=== PATIENT | female | born 1945 | race Two or more races ===

== ENCOUNTER 2025-03-11 11:52 | Outpatient (OUT) | payer MEDICARE, SELFPAY ==
--- OUTSIDE RECORDS SUMMARY | 2025-02-27 08:45 | XMS_ITS | Encounter Summary ---
Author Organization [employer] tem Address [id number] [address] [place] [address] Care Team Providers Care School Psychology Specialist Name Role Phone Tish Pearson APRN-GRADUATE INTERN Primary Care Pro vider Reason for Referral * Misc (Routine) - Authorized Specialty Diagnoses / Procedures Referred By Contac t Referred To Contact Procedures Discharge Follow-Up Amari Lozoya MD [address] [facility] [address] [place] [address] Phone: tel: fax: Referral ID Status Reason Start Date Expiration Date V isits Requested Visits Authorized [id number] Authorized 02/27/2025 02/27/2026 1 1 * Misc (Routine) - Authorized Specialty Diagnoses / Procedures Referred By Contac t Referred To Contact Procedures Leave dressing on - Keep it clean, dry, and intact until clinic visit Amari Lozoya MD [address] [facility] [address] [place] [address] Phone: tel: fax: Referral ID Status Reason Start Date Expiration Date V isits Requested Visits Authorized [id number] Authorized 02/27/2025 02/27/2026 1 1 Reason for Visit * Auth/Cert Specialty Diagnoses / Procedures Referred By Contac t Referred To Contact Diagnoses Displaced fracture of glenoid cavity of scapula right shoulder initial encounter for closed fracture, Displaced fracture of greater tuberosity of right humerus initial encounter for closed fracture Procedures [place] OPEN RX GR TUBEROSITY FX OPEN REDUCTION INTERNAL FIXATION SHOULDER Amari Lozoya MD [address] [place] [address] Phone: tel: fax: Referral ID Status Reason Start Date Expiration Date Visits Re quested Visits Authorized [id number] Encounter Details Date Type Department Care Team (Latest Contact Info) Description 02/27/2025 8:45 AM EDT - 02/27/2025 3:19 PM EDT Hospital Encounter [facility] - Surgery [address] [place] [phone] Amari Lozoya MD [address] [place] [address] Closed displaced fracture of glenoid cavity of right scapula, initial encounter (Primary Dx); Closed displaced fracture of greater tuberosity of right humerus, initial encounter Discharge Disposition: Home Social History Tobacco Use Types Packs/Day Years Used Date Smoking Tobacco: Never Smokeless Tobacco: Never Alcohol Use Standard Drinks/Week Comments No 0 (1 standard drink = 0.6 oz pur e alcohol) Childcare Answer Date Recorded Childcare Unknown 03/23/2019 Employment Answer Date Recorded Employment Unknown 03/23/2019 Hunger Screening Answer Date Recorded Within the past 12 months we worried whether our food would run out before we got money to buy more. Never True 02/10/2025 Within the past 12 months th e food we bought just didn't last and we didn't have money to get more. Never True 02/10/2025 Purpose - Life Answer Date Recorded Purpose and direction in life Unknown Comments No Sex and Gender Information Value Date Recorded Sex Assigned at Not on file Legal Sex Female 11:27 AM EDT Gender Identity Not on file Sexual Orientation Not on file documented as of this encounter Last Filed Vital Signs Vital Sign Reading Time Taken Comments Blood Pressure 136/64 02/27/2025 3:00 PM EDT Pulse 68 02/27/2025 1:52 PM EDT Temperature 36 C (96.8 F) 02/27/2025 3:00 PM EDT Respiratory Rate 16 02/27/2025 3:00 PM EDT Oxygen Saturation 94% 02/27/2025 3:00 PM EDT Inhaled Oxygen Concentration - - Weight 56.7 kg (125 lb) 02/20/2025 1:00 PM EDT Height 160 cm (5' 3 ) 02/20/2025 1:00 PM EDT Body Mass Index 22.14 02/20/2025 1:00 PM EDT documented in this encounter Discharge Instructions * Discharge Instructions* Kerry Colby RN - 02/27/2025 1:35 PM EDT Ortho Discharge Instructions 1. Because you have had anesthesia, do not drive or operate any hazardous machinery for 24 hours 2. Because you have had anesthesia, do not make important personal or business decisions for 24 hours. 3. Because you have had anesthesia, do not drink alcoholic beverages for 24 hours. 4. Because you have had anesthesia, do not smoke or use tobacco products for 24 hours. 5. Eat light foods and drink plenty of fluids, up to 8 glasses per day. 6. If your bandage becomes soaked with bright red blood, place another dressing over it. Do not remove the original bandage. Call your surgeon for further instructions. A small amount of bright red blood is to be expected. 7. Limit your activities for 24 hours. Do not engage in heavy work until your surgeon give you permission. 8. Report any excessive swelling of or around the wound, redness, fever (temp of 100 degrees or more), any excessive pain, or any questions to your surgeon. 9. Elevate the affected extremity on a pillow for comfort 10. Move fingers/toes to improve circulation. 11. Use prescribed pain pill as directed. You may use Tylenol or Motrin if you prefer. 12. Keep your dressing on and dry (unless instructed differently by your doctor) until your PT visit 13. You may use ice to the operative site with the exception of fingers. 14. Call 911 and/or go to the nearest emergency room for any chest pain or shortness of breath. documented in this encounter Medications at Time of Discharge atorvastatin (LIPITOR) 20 mg tablet Take 1 tablet (20 mg total) by mouth in the morning. b complex vitamins capsule Take 1 capsule by mouth in the morning. calcium carbonate-vitamin D3 500 mg-10 mcg (400 unit) tablet Take 1,200 mg by mouth daily. ibandronate (BONIVA) 3 mg/3 mL injectionIndicatio ns:postmenopausal osteoporosis Infuse 3 mL (3 mg total) into a venous catheter every 3 (three) months Indications: decreased bone mass following menopause. losartan (COZAAR) 25 mg tablet Take 1 tablet (25 mg total) by mouth in the morning. TURMERIC ROOT EXTRACT ORAL Take 1 capsule by mouth daily. ZINC ORAL Take by mouth. documented as of this encounter H&P Notes * Amari Lozoya MD - 02/27/2025 10:24 AM EDT HISTORY AND PHYSICAL INTERVAL NOTE: Tanya Lima 1945 [id number] H&P reviewed. The patient was examined and there are no changes to the H&P. Amari Lozoya MD Source Note - Frank Richard PA-C - 02/23/2025 1:31 PM EDT documented in this encounter Miscellaneous Notes * Perioperative Nursing Note - Kerry Colby RN - 02/27/2025 3:09 PM EDT Pt wheeled to bathroom to void. Pt able to transfer from wheelchair to commode with use of cane. RNwith patient to assist as needed. * Op Note - Amari Lozoya MD - 02/27/2025 10:33 AM EDT DATE OF VISIT: 02/27/2025 PREOPERATIVE DIAGNOSIS: 1. * No Diagnosis Codes entered * 2. Right severely comminuted proximal humerus fracture with loose fragments greater tuberosity fracture and rotator cuff tear Body mass index is 22.14 kg/m??. POSTOPERATIVE DIAGNOSIS: 1. * No Diagnosis Codes entered * 2. Right severely comminuted proximal humerus fracture with loose fragments greater tuberosity fracture and rotator cuff tear Body mass index is 22.14 kg/m??. SURGEON: Amari Lozoya MD OPERATION PERFORMED: Procedure(s): Right shoulder arthrotomy with removal loose fragments Open reduction internal fixation right proximal humerus and greater tuberosity with rotator cuff repair bursectomy subacromial decompression ANESTHESIOLOGIST: Anesthesiologist: Perez Phipps MD ASSISTANT COMMUNITY DIRECTOR: Kristine Hook APRN-ASSISTANT COMMUNITY DIRECTOR ANESTHESIA: General COMPONENTS: Implant Name Type Inv. Item Serial No. Shuttle Route Vehicle Operator Lot No. LRB No. Used Action ashley pin, 0.062 Pin Shy [employer] Right 5 Implanted ANCHOR SUT 5.5MM SWIVELOCK C CLS EYLT VNT BCMPS PK 19.1MM EA=BILL-ONLY - [id number] [employer] ANCHOR SUT 5.5MM SWIVELOCK C CLS EYLT VNT BCMPS PK 19.1MM EA=BILL-ONLY [employer] [id number] Right 1 Implanted ashley pin, 5/64 Pin Shy [employer] Right 1 Implanted ESTIMATED BLOOD LOSS: less than 50 cc SPECIMEN: cultures right shoulder VIBRATOR OPERATOR: Torito INDICATIONS: Patient is a pleasant 79 y.o. year-old female with comminuted right proximal humerus fracture with displaced tuberosity fracture rotator cuff tear. Given patient's persistent pain and disability, and difficulties with activities of daily living, wished to proceed with Procedure(s): surgical treatment right shoulder. Reviewed risk complications alternative benefits patient's family's questions answered also for said procedure procedure DESCRIPTION OF PROCEDURE: At [facility] in the operative suite. Patient's carefully padded position of her table she was administered Anesthetic preop antibiotic she was then carefully padded position beach chair position. Fluoroscopic image was brought over the right proximal humerus which images were obtained revealing the displaced fractures. The right upper extremity was then prepped draped routine sterile fashion. A time-out was performed the patient operative site and procedure were verified. Image was brought over the right shoulder. The overlying skin was anesthetizedusing local with epinephrine. A lateral incision was made the lateral aspect the acromion and distal to the 5 cm for protection of the axillary nerve. Skin subcu tissue retractors position was performed with the release of the deltoid 0 fascia from the acromion. A Jase retractor was placed. Serous dark fluid was noted from the bursa. This was swabbed. With a Jase in position a subacromialdecompression was performed with the bursectomy. The large displaced tuberosity fracture was noted with exposure of the glenohumeral joint. Loose fragments were removed from the glenohumeral joint this was irrigated noted free of loose bodies or debris. This was followed by mobilization and reduction of the proximal humerus and greater tuberosity fracture. Extensive comminution of the tuberosity fragment as well as the proximal humerus was noted. Using number 2. FiberWire in a Jagjit-Karlos stitch 6 sutures were placed within the cuff for mobilization and distraction back to its insertion. Thiswas followed by surgical stabilization of proximal use tuberosity fracture using K-wires. This was imaged on multiple views hardware is noted well position. The K-wires were then Cut.This was followed by suture repair of the rotator cuff down to bone using the [employer] SwiveLock anchor the additional sutures were tied around the pin and back to the anchor providing excellent coverage of the humeral head with the tuberosity and torn rotator cuff. The wound was irrigated using irrigation solution.This was followed by repair of the deltotrapezial fascia using 2. Vicryl and Ethibond through bone tunnels within the acromion. Subcutaneous tissue closed using 3-0 skin reapproximated using Quill and arsalan. Final images were obtained AP lateral revealing anatomic shinto fracture with the hardware well positioned. A sterile dressing consisting of bacitracin 4 x 4 Webril foam tape and well-padded molded abduction pillow placed. Patient was carefully transferred from the operative table togurney taken to room stable condition. There no complications with the procedures. This note was made through a speech recognition program and may contain errors due to phonetic interpretation. Signed not reviewed detail * Perioperative Nursing Note - Angelique Lindo RN - 02/27/2025 10:12 AM EDT Patient is concerned about her right groin hurting her. States she is unable to walk at this time. States it is from when she fell 2 weeks ago. She will address issue with Dr. Lozoay this am. * Pre-Procedure Instructions - Kerry Colby RN - 02/20/2025 1:01 PM EDT Pre-Surgery Instructions: Medication Instructions atorvastatin (LIPITOR) 20 mg tablet Continue as prescribed, DO NOT take morning of procedure b complex vitamins capsule Stop taking 1 week prior to procedure calcium carbonate-vitamin D3 500 mg-10 mcg (400 unit) tablet Stop taking 1 week prior to procedure ibandronate (BONIVA) 3 mg/3 mL injection Continue as prescribed, DO NOT take morning of procedure losartan (COZAAR) 25 mg tablet Continue as prescribed, take morning of procedure TURMERIC ROOT EXTRACT ORAL Stop taking 1 week prior to procedure ZINC ORAL Stop taking 1 week prior to procedure PRE-OP INSTRUCTIONS Your surgery is scheduled for: 02/27/2025 You will need to arrive at: 9:00am Come in the main entrance (#1), stop at the main registration desk and tell them you are here for surgery. You will need to sign a consent prior to going to outpatient surgery. If no one is at the receptionist/telephone operator desk in outpatient surgery, please use the red phone that sits on thedesk to notify the pre-op staff that you are here. The number to dial is on the plaque next to the phone. Do not eat or drink anything after midnight the night before surgery - this includes hard candy andchewing gum. EXCEPTION: If your surgery is scheduled for after 12:00 (noon), you may have clear liquids from midnight until 4 a.m. No tobacco products after midnight and no alcohol for 48 hours before surgery. DO NOT SHAVE the area of the operation for 48 hours before surgery. STOP BLOOD THINNERS 5-7 days before surgery unless otherwise instructed by your doctor. These include Aspirin, Motrin (Ibuprofen), and Aleve (Naproxen). If you are on Ticlid, Xarelto, Pradaxa, Plavix, or Coumadin, please check with your prescribing doctor for instructions for when to stop them. Stop all vitamins and herbal products 7 days before surgery. If you use an inhaler, continue to use it routinely Please bring the following with you the day of your surgery: Sling/Swath Please shower the evening before and the morning of surgery. If you have been given Hibiclens, please use during your shower. Do not use any lotion, perfume, cologne, or powder once you shower. You may use deodorant unless you are having a shoulder surgery. Remove nail latvian from at least one finger. If you are having a hand, wrist, or foot surgery - nail latvian and artifical nails must be removed from that extremity. Wear loose fitting, comfortable clothing that will fit over the dressing. Leave valuables (money, jewelry) at home and remove all piercings. Notify your surgeon if you develop any illness before your surgery. If you are staying overnight, please DO NOT BRING your home medications with you You will need a responsible adult to drive you home. For your safety, please arrange to have someone with you for the first 24 hours. If you have any questions before surgery, please call the Pre-admission Testing Department at [phone]. documented in this encounter Plan of Treatment Not on file documented as of this encounter Procedures Procedure Name Priority Date/Time Associated Diagnosis Comments XR SHOULDER RT MIN 2 VWS Routine 02/27/2025 1:12 PM EDT REPAIR ROTATOR CUFF SHOULDER 02/27/2025 10:33 AM EDT Displaced fracture of glenoid cavity of scapula right shoulder initial encounter for closed fracture, Displaced fracture of greater tuberosity of right humerus initial encounter for closed fracture Case Notes 9:00 Special Needs [id number], beach chair and have available 4.0 screws and sutures [place] OPEN RX GR TUBEROSITY FX 02/27/2025 10:33 AM EDT Displaced fracture of glenoid cavity of scapula right shoulder initial encounter for closed fracture, Displaced fracture of greater tuberosity of right humerus initial encounter for closed fracture Case Notes 9:00 Special Needs [id number], beach chair and have available 4.0 screws and sutures documented in this encounter Results * X-ray shoulder right minimum 2 views (02/27/2025 1:12 PM EDT) Anatomical Region Laterality Modality MSK, Upper Extremities, Shoulder Right Radio Fluoroscopy 02/27/2025 2:22 PM EDT Narrative 02/27/2025 2:22 PM EDT XR SHOULDER RT MIN 2 VWS Clinical history:ORIF right shoulder pain, fracture Comparison: 02/28/2025 Impression: ORIF of the proximal humeral fracture with fluoroscopic guidance. Reference air kerma was 5.90 mGy. Finalized by Massimo Nava MD on 02/27/2025 2:22 PM Procedure Note Massimo Nava MD - 02/27/2025 XR SHOULDER RT MIN 2 VWS Clinical history:ORIF right shoulder pain, fracture Comparison: 02/28/2025 Impression: ORIF of the proximal humeral fracture with fluoroscopic guidance.Reference air kerma was 5.90 mGy. Finalized by Massimo Nava MD on 02/27/2025 2:22 PM Amari Lozoya MD IMG DIAGNOSTIC IMAGING ORDERABL ES Final Result documented in this encounter Visit Diagnoses Diagnosis Closed displaced fracture of glenoid cavity of right scapula, initial encounter- Primary Closed displaced fracture of greater tuberosity of right humerus, initial encounter documented in this encounter Administered Medications Inactive Administered Medications - up to 3 most recent administrations Medication Order MAR Action Action Date Dose Rate Site fentaNYL (SUBLIMAZE) injection 25 mcg 25 mcg, intravenous, Every 5 min PRN, Pain Scale 1-5, Starting on Thu02/27/25 at 1253, PACU (only), Up to a maximum dose of 150 mcg. Look-alike/sound-alike medication - verify indication for use. fentaNYL (SUBLIMAZE) injection 50 mcg 50 mcg, intravenous, Every 5 min PRN, Pain Scale 6-10, Starting on Thu02/27/25 at 1253, PACU (only), Up to a maximum dose of 150 mcg. Look-alike/sound-alike medication - verify indication for use. HYDROmorphone (PF) (DILAUDID) injection 0.2 mg 0.2 mg, intravenous, Every 5 min PRN, Pain Scale 1-5 if pain not controlled by fentanyl, Starting on 02/27/25 at 1253, PACU (only), Up to a maximum of 1.2 mg Look-alike/sound-alike medication - verify indication for use. HYDROmorphone (PF) (DILAUDID) injection 0.5 mg 0.5 mg, intravenous, Every 5 min PRN, moderate pain - pain scale 4-6, severe pain - pain scale 7-10, for Pain Scale 6-10 if pain not controlled by fentanyl, Starting on Thu02/27/25 at 1253, For 4 doses, PACU (only), Up to a maximum of 2.0 mg Look-alike/sound-alike medication - verify indication for use. ipratropium-albuteroL (DUONEB) 0.5 mg-3 mg(2.5 mg base)/3 mL nebulizer solution 3 mL 3 mL, nebulization, Once as needed, wheezing, Starting on Thu02/27/25 at 1253, For 1 dose, PACU (only), Implement INPATIENT/ED Bronchodilator Clinical Practice Guidelines? Yes labetaloL (NORMODYNE,TRANDATE) injection 5 mg 5 mg, intravenous, Every 5 min PRN, high blood pressure, systolic blood pressure greater than 160 mmHg and heart rate greater than 60 beats per minute, Starting on Thu02/27/25 at 1253, PACU (only), Maximum dose of labetalol (TRANDATE) is 20 mg while in PACU Look-alike/sound-alike medication - verify indication for use. lactated ringers infusion 100 mL/hr, intravenous, Continuous, Starting on Thu02/27/25 at 0915, Pre-op, If fluid restriction is not indicated, infuse at a rate up to 5 mL/kg/hr not to exceed the total replacement volume (2 ml/kg/hr) from the time NPO status was initiated. Restarted 02/27/2025 12:51 PM EDT Continued by Anesthesia 02/27/2025 10:34 AM EDT 100 mL/hr New Bag 02/27/2025 9:44 AM EDT 100 mL/hr 100 mL/hr lactated ringers infusion 100 mL/hr, intravenous, Continuous, Starting on Thu02/27/25 at 1300, PACU (only) meperidine (DEMEROL) injection 25 mg 25 mg, intravenous, Every 15 min PRN, shivering, Starting on Thu02/27/25 at 1253, For 2 doses, PACU (only), May repeat initial dose in 15 minutes, once, if initial meperidine (DEMEROL) dose ineffective for shivering. midazolam (VERSED) injection 2 mg 2 mg, intravenous, As needed, anxiety, Starting on Thu02/27/25 at 0911, For 1 dose, Pre-op, Indication: Sedation Given 02/27/2025 9:44 AM EDT 2 mg naloxone (NARCAN) injection 0.1 mg 0.1 mg, intravenous, As needed, respiratory depression, Starting on Thu02/27/25 at 1253, For 4 doses, PACU (only), Maximum dose: 0.4 mg Look-alike/sound-alike medication - verify indication for use. ondansetron (PF) (ZOFRAN) injection 4 mg 4 mg, intravenous, Once as needed, nausea, Starting on Thu02/27/25 at 1253, For 1 dose, PACU (only), Intravenous administration preferred to be given over 2-5 minutes. oxyCODONE (ROXICODONE) immediate release tablet 10 mg 10 mg, oral, Every 4 hours PRN, severe pain - pain scale 7-10, Starting on Thu02/27/25 at 1253, PACU (only), Look-alike/sound-alike medication - verify indication for use. Immediate release. oxyCODONE (ROXICODONE) immediate release tablet 5 mg 5 mg, oral, Every 4 hours PRN, pain scale 1-6, Starting on Thu02/27/25 at 1253, PACU (only), Look-alike/sound-alike medication - verify indication for use. Immediate release. documented in this encounter Active and Recently Administered Medications Times are shown in EDT. Scheduled Medication Order 02/25/2025 02/26/2025 02/27/2025 ceFAZolin (ANCEF) IVPB 2000 mg/50 mL in iso-osmotic dextrose (40 mg/mL premix) (COMPLETED) 2,000 mg, intravenous, at 100 mL/hr, Administer over 30 Minutes, Once, On Thu02/27/25 at 0915, For 1 dose, Pre-op, Look-alike/sound-alike medication - verify indication for use., Indication: Surgical prophylaxis 1034 (Given - Provid er: Kristine Hook, MANAGER BIOSTATISTICS-ASSISTANT COMMUNITY DIRECTOR) Continuous Medication Order 02/25/2025 02/26/2025 02/27/2025 lactated ringers infusion (CANCELED) 100 mL/hr, intravenous, Continuous, Starting on Thu02/27/25 at 0915, Pre-op, If fluid restriction is not indicated, infuse at a rate up to 5 mL/kg/hr not to exceed the total replacement volume (2 ml/kg/hr) from the time NPO status was initiated. 0944 (New Bag - Prov ider: Angelique Lindo RN)1034 (Continued by Anesthesia - Provider: RUBY Torres)1250 (Paused - Provider: RUBY Torres - Comment: Switch to gravity)1251 (Restarted - Provider: RUBY Torres)1406 (Due: Order Ending - Provider: Automatic Transfer Provider - Comment: [Order ends at this time. Document the following action when infusion is complete: Stop Bag]) lactated ringers infusion 100 mL/hr, intravenous, Continuous, Starting on Thu02/27/25 at 1300, PACU (only) 1300 (Due) PRN Medication Order 02/25/2025 02/26/2025 02/27/2025 bacitracin ointment (CANCELED) As needed, Starting on Thu02/27/25 at 1246, Intra-op 1246 (Given - Provid er: Amari Lozoya MD) bupivacaine-EPINEPHrine (MARCAINE w/EPI) 0.25 %-1:[id number] injection (CANCELED) As needed, Starting on Thu02/27/25 at 1109, Intra-op 1109 (Given - Provid er: Amari Lozoya MD) fentaNYL (SUBLIMAZE) injection 25 mcg 25 mcg, intravenous, Every 5 min PRN, Pain Scale 1-5, Starting on Thu02/27/25 at 1253, PACU (only), Up to a maximum dose of 150 mcg. Look-alike/sound-alike medication - verify indication for use. fentaNYL (SUBLIMAZE) injection 50 mcg 50 mcg, intravenous, Every 5 min PRN, Pain Scale 6-10, Starting on Thu02/27/25 at 1253, PACU (only), Up to a maximum dose of 150 mcg. Look-alike/sound-alike medication - verify indication for use. HYDROmorphone (PF) (DILAUDID) injection 0.2 mg 0.2 mg, intravenous, Every 5 min PRN, Pain Scale 1-5 if pain not controlled by fentanyl, Starting on Thu02/27/25 at 1253, PACU (only), Up to a maximum of 1.2 mg Look-alike/sound-alike medication - verify indication for use. HYDROmorphone (PF) (DILAUDID) injection 0.5 mg 0.5 mg, intravenous, Every 5 min PRN, moderate pain - pain scale 4-6, severe pain - pain scale 7-10, for Pain Scale 6-10 if pain not controlled by fentanyl, Starting on Thu02/27/25 at 1253, For 4 doses, PACU (only), Up to a maximum of 2.0 mg Look-alike/sound-alike medication - verify indication for use. ipratropium-albuteroL (DUONEB) 0.5 mg-3 mg(2.5 mg base)/3 mL nebulizer solution 3 mL 3 mL, nebulization, Once as needed, wheezing, Starting on Thu02/27/25 at 1253, For 1 dose, PACU (only), Implement INPATIENT/ED Bronchodilator Clinical Practice Guidelines? Yes labetaloL (NORMODYNE,TRANDATE) injection 5 mg 5 mg, intravenous, Every 5 min PRN, high blood pressure, systolic blood pressure greater than 160 mmHg and heart rate greater than 60 beats per minute, Starting on Thu02/27/25 at 1253, PACU (only), Maximum dose of labetalol (TRANDATE) is 20 mg while in PACU Look-alike/sound-alike medication - verify indication for use. meperidine (DEMEROL) injection 25 mg 25 mg, intravenous, Every 15 min PRN, shivering, Starting on Thu02/27/25 at 1253, For 2 doses, PACU (only), May repeat initial dose in 15 minutes, once, if initial meperidine (DEMEROL) dose ineffective for shivering. midazolam (VERSED) injection 2 mg (COMPLETED) 2 mg, intravenous, As needed, anxiety, Starting on Thu02/27/25 at 0911, For 1 dose, Pre-op, Indication: Sedation 0944 (Given - Provid er: Angelique Lindo RN) naloxone (NARCAN) injection 0.1 mg 0.1 mg, intravenous, As needed, respiratory depression, Starting on Thu02/27/25 at 1253, For 4 doses, PACU (only), Maximum dose: 0.4 mg Look-alike/sound-alike medication - verify indication for use. ondansetron (PF) (ZOFRAN) injection 4 mg 4 mg, intravenous, Once as needed, nausea, Starting on Thu02/27/25 at 1253, For 1 dose, PACU (only), Intravenous administration preferred to be given over 2-5 minutes. oxyCODONE (ROXICODONE) immediate release tablet 10 mg(Linked Group 1) 10 mg, oral, Every 4 hours PRN, severe pain - pain scale 7-10, Starting on Thu02/27/25 at 1253, PACU (only), Look-alike/sound-alike medication - verify indication for use. Immediate release. oxyCODONE (ROXICODONE) immediate release tablet 5 mg(Linked Group 1) 5 mg, oral, Every 4 hours PRN, pain scale 1-6, Starting on Thu02/27/25 at 1253, PACU (only), Look-alike/sound-alike medication - verify indication for use. Immediate release. sodium chloride 0.9% (NS) irrigation bottle (CANCELED) As needed, Starting on Thu02/27/25 at 1109, Intra-op 1109 (Given - Provid er: Amari Lozoya MD - Comment: to back table) Linked Groups Order Group 1: oxyCODONE (ROXICODONE) immediate release tablet 5 mgJump to med 5 mg, oral, Every 4 hours PRN, pain scale 1-6, Starting on Thu02/27/25 at 1253, PACU (only), Look-alike/sound-alike medication - verify indication for use. Immediate release. Or oxyCODONE (ROXICODONE) immediate release tablet 10 mgJump to med 10 mg, oral, Every 4 hours PRN, severe pain - pain scale 7-10, Starting on Thu02/27/25 at 1253, PACU (only), Look-alike/sound-alike medication - verify indication for use. Immediate release. documented in this encounter Care Teams School Psychology Specialist Relationship Specialty Start Date End Date Tish Pearson, MANAGER BIOSTATISTICS-GRADUATE INTERN [address] [place] [address] PCP - General Internal Medicine 08/31/24 documented as of this encounter
--- OUTSIDE RECORDS SUMMARY | 2025-02-27 10:30 | XMS_ITS | Encounter Summary ---
Author Organization [facility] tem Address [id number] [address] [place] [address] Care Team Providers Care Plate Developer Name Role Phone PearsonTish beltran APRN-BENEFITS SPECIALIST RECRUITER Primary Care Pro vider Reason for Visit * Auth/Cert Specialty Diagnoses / Procedures Referred By Contac t Referred To Contact Diagnoses Displaced fracture of glenoid cavity of scapula right shoulder initial encounter for closed fracture, Displaced fracture of greater tuberosity of right humerus initial encounter for closed fracture Procedures WY OPEN RX GR TUBEROSITY FX OPEN REDUCTION INTERNAL FIXATION SHOULDER Amari Lozoya MD [address] [place] [address] Phone: tel: fax: Referral ID Status Reason Start Date Expiration Date Visits Re quested Visits Authorized [id number] Encounter Details Date Type Department Care Team (Late st Contact Info) Description 02/27/2025 10:30 AM EDT - 02/27/2025 12:00 PM EDT Surgery [facility] - Surgery [address] [place] [id number] Amari Lozoya MD [address] [place] [address] OPEN REDUCTION INTERNAL FIXATION SHOULDER [97507 (CPT )] Surgery Details Date/Time Status Location OR Service Patient Class Case Cl ass Case Type Trauma Case? 02/27/2025 10:30 AM Posted [facility] Elective Panel 1 Procedure LRB Anes Op Region Wound Class Comments OPEN REDUCTION INTERNAL FIXA TION SHOULDER Right General Shoulder Clean REPAIR ROTATOR CUFF SHOULDER Right General Shoulder C lean Surgeon Surgeon Role Service Panel Amari Lozoya MD [facility] 1 Case Notes 9:00 Special Needs [id number], beach chair and have available 4.0 screws and sutures documented in this encounter Social History Tobacco Use Types Packs/Day Years [...] Sign Reading Time Taken Comments Blood Pressure 135/63 02/27/2025 9:22 AM EDT Pulse 79 02/27/2025 9:22 AM EDT Temperature 36.6 C (97.8 F) 02/27/2025 9:22 AM EDT Respiratory Rate 20 02/27/2025 9:22 AM EDT Oxygen Saturation 98% 02/27/2025 9:22 AM EDT Inhaled Oxygen Concentration - - Weight [...] AND PHYSICAL INTERVAL NOTE: Tanya Lima 1945 [id number] H&P reviewed. The patient was examined and [...] subacromial decompression ANESTHESIOLOGIST: Anesthesiologist: Perez Phipps MD SIZE TESTER: Kristine Hook APRN-CANDIS ANESTHESIA: General COMPONENTS: Implant Name Type Inv. Item Serial No. Ship Engines Operating Engineer Lot No. LRB No. Used Action ashley pin, 0.062 Pin [employer] Right 5 Implanted ANCHOR SUT 5.5MM SWIVELOCK C CLS EYLT VNT BCMPS PK 19.1MM EA=BILL-ONLY - [id number] [place] ANCHOR SUT 5.5MM SWIVELOCK C CLS EYLT VNT BCMPS PK 19.1MM EA=BILL-ONLY [employer] [id number] Right 1 Implanted ashley pin, 5/64 Pin [employer] Right 1 Implanted ESTIMATED BLOOD LOSS: less than 50 cc SPECIMEN: cultures right shoulder SENIOR TELECOMMUNICATIONS TECHNICIAN: Torito INDICATIONS: Patient is a pleasant 79 y.o. year-old female with comminuted right proximal humerus fracture with displaced tuberosity fracture rotator cuff tear. Given patient's persistent pain and disability, and difficulties with activities of daily living, wished to proceed with Procedure(s): surgical treatment right shoulder. Reviewed risk complications alternative benefits patient's family's q uestions answered also for said procedure procedure DESCRIPTION OF PROCEDURE: At [facility] in the operative suite. Patient's carefully padded [...] images were obtained AP lateral revealing anatomic latter-day fracture with the hardware well positioned. A [...] ago. She will address issue with Dr. Lozoya this am. * Pre-Procedure Instructions - Kerry [...] surgery. If no one is at the project control manager desk in outpatient surgery, please use the [...] are having a shoulder surgery. Remove nail eritrean from at least one finger. If you are having a hand, wrist, or foot surgery - nail eritrean and artifical nails must be removed from [...] please call the Pre-admission Testing Department at [phone]. documented in this encounter Plan of Treatment [...] closed fracture Case Notes 9:00 Special Needs [id number], beach chair and have available 4.0 screws and sutures WY OPEN RX GR TUBEROSITY FX 02/27/2025 10:33 AM EDT Displaced fracture of glenoid cavity of scapula right shoulder initial encounter for closed fracture, Displaced fracture of greater tuberosity of right humerus initial encounter for closed fracture Case Notes 9:00 Special Needs [id number], beach chair and have available 4.0 screws [...] Massimo Nava MD on 02/27/2025 2:22 PM us Amari Lozoya MD IMG DIAGNOSTIC IMAGING ORDERABL ES Final Result documented in this encounter Visit Diagnoses Not on filedocumented in this encounter Administered Medications Inactive Administered Medications - up to 3 most recent administrations Medication Order MAR Action Action Date Dose Rate Site bacitracin ointment As needed, Starting on Thu02/27/25 at 1246, Intra-op Given 02/27/2025 12:46 PM EDT 1 Application Operative Site bupivacaine-EPINEPHrine (MARCAINE w/EPI) 0.25 %-[id number] injection As needed, Starting on Thu02/27/25 at 1109, Intra-op Given 02/27/2025 11:09 AM EDT 12 mL Operative Site fentaNYL (SUBLIMAZE) injection 25 mcg 25 [...] release. sodium chloride 0.9% (NS) irrigation bottle As needed, Starting on Thu02/27/25 at 1109, Intra-op Given 02/27/2025 11:09 AM EDT 500 mL Ot her documented in this encounter Active and Recently [...] 1034 (Given - Provid er: Kristine Hook, ) Continuous Medication Order 02/25/2025 02/26/2025 02/27/2025 lactated [...] Amari Lozoya MD) bupivacaine-EPINEPHrine (MARCAINE w/EPI) 0.25 %-1:[id number] injection (CANCELED) As needed, Starting on Thu02/27/25 [...] release. documented in this encounter Care Teams Plate Developer Relationship Specialty Start Date End Date Tish Pearson, LOKESH-BENEFITS SPECIALIST RECRUITER [address] [place] [address] PCP - General Internal Medicine 11/20/24 documented as of this encounter
--- OUTSIDE RECORDS SUMMARY | 2025-02-27 10:34 | XMS_ITS | Encounter Summary ---
Author Organization [facility] tem Address [id number] [address] [place] [address] Care Team Providers Care Field Counsel Name Role Phone Pearson, Tish Lucy INSURANCE ACTUARY-DEVULCANIZER TENDER Primary Care Pro vider Reason for Visit * Auth/Cert Specialty Diagnoses / Procedures Referred By Contac t Referred To Contact Diagnoses Displaced fracture of glenoid cavity of scapula right shoulder initial encounter for closed fracture, Displaced fracture of greater tuberosity of right humerus initial encounter for closed fracture Procedures AR OPEN RX GR TUBEROSITY FX OPEN REDUCTION INTERNAL FIXATION SHOULDER Amari Lozoya MD [address] [place] [address] Phone: tel: fax: Referral ID Status Reason Start Date Expiration Date Visits Re quested Visits Authorized [id number] Encounter Details Date Type Department Care Team (Late st Contact Info) Description 02/27/2025 10:34 AM EDT Anesthesia Event [facility] - Surgery [address] [place] [phone] Perez Phipps MD [address] [place] [id number] Anesthesia Record Procedure Summary Procedure Name Responsible Anesthesiologist Anesthesia Start Time Anesthesia Stop Time OPEN REDUCTION INTERNAL FIXATION SHOULDER (Right: Shoulder) Perez Phipps MD 02/27/25 1034 02/27/25 1308 Events Date Time Event Comment 02/27/2025 0908 1034 An Start 1034 An Start Data 1037 An Induction The patient was reevaluated immediately before moderate or deep sedation use and before anesthesia induction. 1038 An Intubation 1041 Patient Ready for Surgeon 1041 Position 1300 An Extubation 1303 an stop data 1304 Transport/Transfer From the OR 1304 Handoff to RN Transported to :PACU, Spontaneous Ventilation, O2 per Room Air, 0 LPM Pt. Tolerated procedure well, vital signs stable and document on nursing record Care transferred to receiving RN 1308 An Stop Meds Name Total ropivacaine (NAROPIN) injection 0.5 % 20 mL lidocaine (XYLOCAINE) injection 2% 2 mL lidocaine (XYLOCAINE) injection 2% 100 m g ceFAZolin (ANCEF) IVPB 2000 mg/50 mL in iso-osmotic dextrose (40 mg/mL premix) 2,000 mg propofol (DIPRIVAN) injection 150 mg fentaNYL (SUBLIMAZE) injection 75 mcg rocuronium (ZEMURON) 50 mg/5 mL injectio n 30 mg dexAMETHasone (DECADRON) injection 10 mg /mL 5 mg ondansetron PF (ZOFRAN) 2 mg/mL injectio n 4 mg lactated ringers infusion 500 mL * Agents Name Sevoflurane Inspired Sevoflurane * Blood No blood administrations on file. Lines, Drains, and Airways Type Details Placement Removal Peripheral IV Placement Date: 02/09 07/06; Placement Time: 0956; Catheter Size: 20 G; Orientation: Left; Location: Hand; Site Prep: Chlorhexadine and isopropyl alcohol; Technique: Anatomical landmarks; Inserted by: Ronaldo PULIDO; Insertion Attempts: 1; Patient Tolerance: Tolerated well; Removal Date: 02/27/25; Removal Time: 1506 02/27/25 0956 by Angelique Lindo RN 02/27/25 1506 by Kerry Colby RN ETT Placement Date: 02/09 07/06; Placement Time: 1038 (created via procedure documentation); Mask Ventilation: Ventilated by mask; Type: Cuffed (MOV); Tube Size: 7 mm; Laryngoscope: Mac; Blade Size: 3; Location: Oral; Grade View: 1; Insertion Attempts: 1; Placement Verification: Auscultation, End tidal CO2, Symmetrical chest wall movement; Removal Date: 02/27/25; Removal Time: 1300 02/27/25 1038 by RUBY Torres 02/27/25 1300 by RUBY Torres Wound 02/27/25; 1246; Inci reva; Shoulder; Right; fluffs, abd, foam tape, sling; 02/27/25; 1519 02/27/25 1246 by Gayle Ibanez RN 02/27/25 1519 by Kerry Colby RN documented in this encounter Social History Tobacco [...] on file documented as of this encounter OR Notes * Anesthesia Postprocedure Evaluation - Perez Phipps MD - 02/27/2025 1:36 PM EDT ANESTHESIA POST-EVALUATION [facility] Procedure Summary Date: 02/27/25 Room / Location: [facility] OR [address] [place] [address] SURGERY Anesthesia Start: 1034 Anesthesia Stop: 1308 Procedures: OPEN REDUCTION INTERNAL FIXATION SHOULDER (Right: Shoulder) REPAIR ROTATOR CUFF SHOULDER (Right: Shoulder) Diagnosis: (Displaced fracture of glenoid cavity of scapula right shoulder initial encounter for closed fracture, Displaced fracture of greater tuberosity of right humerus initial encounter for closed fracture) Surgeons: Amari Lozoya MD Responsible Provider: Perez Phipps MD Anesthesia Type: general endotracheal, regional ASA Status: 2 Vitals: 02/27/25 1322 BP: 143/69 Pulse: 69 Resp: 22 Temp: SpO2: 95% Patient Evaluated: PACU Patient Participation: Complete - patient participated Patient Level of Consciousness: Awake and Alert Pain Score: 0 Pain Management: Adequate Multimodal Analgesia: multimodal analgesia used between 6 hours prior to anesthesia start to PACU discharge Airway Patency: Patent Anesthetic Complications: No Cardiovascular Status: Hemodynamically Stable Respiratory Status: Stable/Baseline and Room Air Post-op Hydration: Euvolemic Final Anesthesia Type: spinal and regional Does patient meet criteria to D/C from PACU?: Yes Is patient sedated pharmacologically at PACU D/C?: No No notable events documented. * Anesthesia Procedure Notes - RUBY Torres - 02/27/2025 10:56 AM EDT Associated Order(s): Airway Airway Patient location during procedure: OR Urgency: Elective Date/Time: 02/27/2025 10:38 AM Airway not difficult IV In Situ: Peripheral General Information and Staff Service Provider: RUBY Torres Placed by: RUBY Torres Patient Identified, IV Checked, Risks and Benefits Discussed, Surgical Consent, Monitors and Equipment Checked, Pre-op Evaluation and Timeout Performed Fire Risk Assessment Score: 0 Consent for Emergent Airway (if performed for an anesthetic, see related documentation for consents) Risks and benefits: risks, benefits and alternatives were discussed Indications and Patient Condition Sedation level: Deep Preoxygenated: yesPatient position: Supine and Sniffing MILS maintained throughout Mask difficulty assessment: Vent By Mask Indications for airway management: Anesthesia Complications: No Complicating Factors: No Final Airway Details Final airway type: ETT Endotracheal airway: Cuffed and ETT - Single Lumen (MOV) Techniques used for successful ETT Placement: Direct Laryngoscopy and Without Stylet Cormack-Lehane Classification: Grade I Endotracheal tube insertion site: Oral Dentition Check Pre: See Pre-Evaluaton documentation Post Intubation Trauma? No Visibility: Cords Clear Blade: Cesar Blade size: #3 Placement verified by: chest auscultation, capnography and symmetrical chest wall movement ETT size: 7.0 mm Measured from: Lips Secured at (cm): 21 Number of other approaches attempted: 0 Number of attempts at approach: 1 * Anesthesia Procedure Notes - Perez Phipps MD - 02/27/2025 9:54 AM EDT Associated Order(s): Peripheral Block Peripheral Block Patient Location: Pre-op Start Time: 02/27/2025 9:48 AM End Time: 02/27/2025 9:51 AM Reason for Block: Surgical/Post-op Pain Management and At Surgeon's Request IV In situ: Peripheral General Information and Staff: Service Provider: Perez Phipps MD Surgeon: Amari Lozoya MD Placed by: Perez Phipps MD Checklist: Patient Identified, IV Checked, Site Marked, Risks and Benefits Discussed, Surgical Consent, Monitors and Equipment Checked, Pre-op Evaluation and Timeout Performed Fire Risk Assessment Score: 2 Positioning and Technique: Patient Position: Sitting Prep: Chlorhexidine and Isopropyl Alcohol Monitoring: Heart Rate, Buzzsaw Operator Helper, Continuous Pulse Ox and Blood Pressure Oxygen Source: Nasal Cannula Location: Interscalene Laterality: Right Injection Technique: Single Shot Number of Attempts: 1 Placement Technique: Ultrasound Guided Anesthesia Block Medication Given: lidocaine (XYLOCAINE) injection 2% - infiltration, Right Brachial 2 mL - 02/27/2025 9:49:00 AM ropivacaine (NAROPIN) injection 0.5 % - infiltration, Right Brachial 20 mL - 02/27/2025 9:50:00 AM Anxiolytics Given: Yes Needle: Needle Type: Short-Bevel Needle Gauge: 22 G Needle Length: 5 cm Needle Localization: Ultrasound Guidance Assessment: Injection Assessment: Negative Aspiration for Heme, No Paresthesia on Injection, Local Visualized Surrounding Nerve on Ultrasound, No S/S intravascular or Intraneural Injection and Incremental Injection Paresthesia Pain: None Heart Rate Change: No Slow Fractionated Injection: Yes Comments: * Anesthesia Preprocedure Evaluation - Perez Phipps MD - 02/27/2025 9:07 AM EDT Images from the original note were not included. [facility]ESTHESIA [email or web address] OPEN REDUCTION INTERNAL FIXATION SHOULDER ANESTHESIA PHYSICAL EXAM Patient summary reviewed Airway Mallampati: II TM distance: >3 FB Neck ROM: full Patient is not intubated Patient does not have tracheostomy Dental : exam normal Pulmonary : exam normal Cardiovascular : exam normal Abdominal : exam normal Other Findings Past Medical History: No date: Arthritis No date: Cataract No date: Hypertension No date: Osteopenia No date: Osteoporosis ANESTHESIA PLAN ASA 2 Anesthesia Type: general endotracheal and regional (General anesthesia with interscalene block for post op pain relief.) Induction: Intravenous Anesthetic risks, plan and alternatives discussed with Patient. Use of blood products discussed with Patient who consented to blood products. Plan discussed with RETAIL TRAINING MANAGER. Airway Management: Endotracheal Post op Pain Management: IV Analgesics and Peripheral Nerve Block Transfer to PACU PONV: Intermediate Risk Total Score: 2 Female patient Non-smoker Criteria that do not apply: History of PONV and/or Motion Sickness Intended opioid administration RCRI: Low Risk: Score of 0 = 3.9% (2.8-5.4%) Risk of major cardiac event Score of 1 = 6.0% (4.9-7.4%) Risk of major cardiac event Total Score: 0 Criteria that do not apply: Cerebrovascular Disease Ischemic Heart Disease Congestive Heart Failure Elevated Risk Surgery Pre-operative Treatment with Insulin Pre-operative Creatinine >2 mg/dL / 176.8 mol/L Patient Active Problem List Diagnosis Osteopenia Osteoporosis documented in this encounter Plan of Treatment Not on file documented as of this encounter Procedures Procedure Name Priority Date/Time Associated Diagnosis Comments AR AN ELECTIVE ENDOTRACHEAL AIRWAY Routine 02/27/2025 10:38 AM EDT CHG SONO GUIDE NEEDLE BIOPSY Routine 02/27/2025 9:54 AM EDT AR INJECTION AA&/STRD BRACHIAL PLEXUS W/IMG GDN Routine 02/27/2025 9:54 AM EDT PM PERIPHERAL BLOCK Routine 02/27/2025 9 :54 AM EDT documented in this encounter Results * AR AN ELECTIVE ENDOTRACHEAL AIRWAY (02/27/2025 10:38 AM EDT) Kristine Ascencio APRN-CRNA - 02/27/2025 10:38 AM EDT RUBY Torres 02/27/2025 10:57 AM Airway Patient location during procedure: OR Urgency: Elective Date/Time: 02/27/2025 10:38 AM Airway not difficult IV In Situ: Peripheral General Information and Staff Service Provider: RUBY Torres Placed by: RUBY Torres Patient Identified, IV Checked, Risks and Benefits Discussed, Surgical Consent, Monitors and Equipment Checked, Pre-op Evaluation and Timeout Performed Fire Risk Assessment Score: 0 Consent for Emergent Airway (if performed for an anesthetic, see related documentation for consents) Risks and benefits: risks, benefits and alternatives were discussed Indications and Patient Condition Sedation level: Deep Preoxygenated: yesPatient position: Supine and Sniffing MILS maintained throughout Mask difficulty assessment: Vent By Mask Indications for airway management: Anesthesia Complications: No Complicating Factors: No Final Airway Details Final airway type: ETT Endotracheal airway: Cuffed and ETT - Single Lumen (MOV) Techniques used for successful ETT Placement: Direct Laryngoscopy and Without Stylet Cormack-Lehane Classification: Grade I Endotracheal tube insertion site: Oral Dentition Check Pre: See Pre-Evaluaton documentation Post Intubation Trauma? No Visibility: Cords Clear Blade: Cesar Blade size: #3 Placement verified by: chest auscultation, capnography and symmetrical chest wall movement ETT size: 7.0 mm Measured from: Lips Secured at (cm): 21 Number of other approaches attempted: 0 Number of attempts at approach: 1 us Perez Phipps MD ANESTHESIA ORDERABLES Final R esult * PM PERIPHERAL BLOCK, AR INJECTION AA&/STRD BRACHIAL PLEXUS W/IMG GDN, CHG SONO GUIDE NEEDLE BIOPSY (02/27/2025 9:54 AM EDT) Perez Santos MD - 02/27/2025 9:54 AM EDT Perez Phipps MD 02/27/2025 9:54 AM Peripheral Block Patient Location: Pre-op Start Time: 02/27/2025 9:48 AM End Time: 02/27/2025 9:51 AM Reason for Block: Surgical/Post-op Pain Management and At Surgeon's Request IV In situ: Peripheral General Information and Staff: Service Provider: Perez Phipps MD Surgeon: Amari Lozoya MD Placed by: Perez Phipps MD Checklist: Patient Identified, IV Checked, Site Marked, Risks and Benefits Discussed, Surgical Consent, Monitors and Equipment Checked, Pre-op Evaluation and Timeout Performed Fire Risk Assessment Score: 2 Positioning and Technique: Patient Position: Sitting Prep: Chlorhexidine and Isopropyl Alcohol Monitoring: Heart Rate, Buzzsaw Operator Helper, Continuous Pulse Ox and Blood Pressure Oxygen Source: Nasal Cannula Location: Interscalene Laterality: Right Injection Technique: Single Shot Number of Attempts: 1 Placement Technique: Ultrasound Guided Anesthesia Block Medication Given: lidocaine (XYLOCAINE) injection 2% - infiltration, Right Brachial 2 mL - 02/27/2025 9:49:00 AM ropivacaine (NAROPIN) injection 0.5 % - infiltration, Right Brachial 20 mL - 02/27/2025 9:50:00 AM Anxiolytics Given: Yes Needle: Needle Type: Short-Bevel Needle Gauge: 22 G Needle Length: 5 cm Needle Localization: Ultrasound Guidance Assessment: Injection Assessment: Negative Aspiration for Heme, No Paresthesia on Injection, Local Visualized Surrounding Nerve on Ultrasound, No S/S intravascular or Intraneural Injection and Incremental Injection Paresthesia Pain: None Heart Rate Change: No Slow Fractionated Injection: Yes Comments: us Perez Phipps MD ANESTHESIA ORDERABLES Final R esult documented in this encounter Visit Diagnoses Not on filedocumented in this encounter Administered Medications Inactive Administered Medications - up to 3 most recent administrations Medication Order MAR Action Action Date Dose Rate Site ceFAZolin (ANCEF) IVPB 2000 mg/50 mL in iso-osmotic dextrose (40 mg/mL premix) 2,000 mg, intravenous, at 100 mL/hr, Administer over 30 Minutes, Once, On Thu02/27/25 at 0915, For 1 dose, Pre-op, Look-alike/sound-alike medication - verify indication for use., Indication: Surgical prophylaxis Given 02/27/2025 10:34 AM EDT 2,000 mg dexAMETHasone (DECADRON) injection intravenous, As needed, Starting on Thu02/27/25 at 1037, Anesthesia Intra-op Given 02/27/2025 10:37 AM EDT 5 mg fentaNYL (SUBLIMAZE) injection intravenous, As needed, Starting on Thu02/27/25 at 1037, Anesthesia Intra-op Given 02/27/2025 12:03 PM EDT 25 mcg Given 02/27/2025 10:48 AM EDT 25 mcg Given 02/27/2025 10:37 AM EDT 25 mcg lactated ringers infusion 100 mL/hr, intravenous, Continuous, [...] 9:44 AM EDT 100 mL/hr 100 mL/hr lidocaine (XYLOCAINE) 20 mg/mL (2 %) injection infiltration, One-Time Injection, Starting on Thu02/27/25 at 0949, For 1 dose, Anesthesia Intra-op Given 02/27/2025 9:49 AM EDT 2 mL Right Brachial lidocaine (XYLOCAINE) 20 mg/mL (2 %) injection intravenous, As needed, Starting on Thu02/27/25 at 1037, Anesthesia Intra-op Given 02/27/2025 12:03 PM EDT 50 mg Given 02/27/2025 10:37 AM EDT 50 mg ondansetron (PF) (ZOFRAN) injection intravenous, As needed, Starting on Thu02/27/25 at 1037, Anesthesia Intra-op Given 02/27/2025 10:37 AM EDT 4 mg propofoL (DIPRIVAN) infusion intravenous, As needed, Starting on Thu02/27/25 at 1037, Anesthesia Intra-op Given 02/27/2025 10:37 AM EDT 150 mg rocuronium (ZEMURON) injection intravenous, As needed, Starting on Thu02/27/25 at 1037, Anesthesia Intra-op Given 02/27/2025 10:37 AM EDT 30 mg ropivacaine (NAROPIN) 0.5 % injection infiltration, One-Time Injection, Starting on Thu02/27/25 at 0950, For 1 dose, Anesthesia Intra-op Given 02/27/2025 9:50 AM EDT 20 mL Right Brachial documented in this encounter Care Teams Field Counsel Relationship Specialty Start Date End Date Tish Pearson, INSURANCE ACTUARY-DEVULCANIZER TENDER [address] [place] [address] PCP - General Internal Medicine 08/31/24 documented as of this encounter
--- NOTE | 2025-03-11 | XR_ITS ---
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 Mild bilateral hip degeneration. Greater trochanter spurring. There are no acute displaced fracture. Adequate bony alignment. XR/XR hip RT 2V w/ pelvis IMPRESSION: Mild right hip degeneration 3 views right knee Adequate alignment. No acute displaced fracture. Minor degenerative changes. Unremarkable soft tissues. No joint effusion. IMPRESSION: Minor degenerative change Impression dictated by: Matt Donis M.D. 03/11/2025 12:53 PM Dictation Location: [employer] Electronically authenticated by: [id number] Y Date: 03/11/2025 12:53
--- NOTE | 2025-03-11 | XR_ITS ---
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 Mild bilateral hip degeneration. Greater trochanter spurring. There are no acute displaced fracture. Adequate bony alignment. XR/XR knee RT 3V IMPRESSION: Mild right hip degeneration 3 views right knee Adequate alignment. No acute displaced fracture. Minor degenerative changes. Unremarkable soft tissues. No joint effusion. IMPRESSION: Minor degenerative change Impression dictated by: Matt Donis M.D. 03/11/2025 12:53 PM Dictation Location: [employer] Electronically authenticated by: [id number] Y Date: 03/11/2025 12:53
--- OUTSIDE RECORDS SUMMARY | 2025-03-11 11:55 | XMS_ITS | Encounter Summary ---
Author Organization [facility] Address [address] [place] [address] Care Team Providers Care Lamp Shade Maker Name Role Phone Tish Pearson MARKETING AUTOMATION MANAGER Unavailable Hue Phelps MD Primary Care Provider Yelena An MARKETING AUTOMATION MANAGER Unavailable Theodore Augustin [employer] Unavailable [phone] Reason for Visit * Reason Comments Med Refill Encounter Details Date Type Department Care Team (Late st Contact Info) Description 04/05/2023 Refill [facility] [address] [place] [address] Hue Phelps MD [address] [place], [place] [id number] Mixed hyperlipidemia (CMS/HCC) (Primary Dx) Social History Tobacco Use Types Packs/Day Years Used Date Smoking Tobacco: Never Smokeless Tobacco: Never Alcohol Use Standard Drinks/Week Comments Never 0 (1 standard drink = 0.6 oz pur e alcohol) caffeine: 1-2 cups per day PHQ-2 Answer Date Recorded Patient Health Questionnaire-2 Score 0 03/31/2023 Comments Unknown Sex and Gender Information Value Date Recorded Sex Assigned at Not on file Legal Sex Female 7:26 PM EDT Gender Identity Not on file Sexual Orientation Not on file documented as of this encounter Miscellaneous Notes * Telephone Encounter - Tish Pearson NP - 04/13/2023 3:54 PM EDT Noted thanks * Telephone Encounter - Hue Fernandez MA - 04/13/2023 3:51 PM EDT Doing some eucolpty mint ointment massage taking some mobic as well as doing the excercises , I told her to add in some tylenol as well as heat and ice and to get icy hot. If she doesn't feel better by weds to give us a call and we will make her an appointment * Telephone Encounter - Tish Pearson NP - 04/13/2023 3:26 PM EDT She will need to come in for a follow up appointment. Is she taking any over the counter medictions, heat, ice, aspercreme, icy heat, * Telephone Encounter - Anca Arango - 04/13/2023 2:23 PM EDT Pt called saying that she got a cortizone shot done for her sciatica and she's done all the excurses and nothing as worked for her. She was to know what to do luz elena . She's in a lot of pain * Telephone Encounter - Hue Phelps MD - 04/06/2023 11:44 AM EDT Approving, but needs appt for additional refills. documented in this encounter Plan of Treatment Upcoming Encounters Date Type Department Care Team (Late st Contact Info) Description 09/21/2025 2:00 PM EST Office Visit [facility] [address] [place] [address] Hue Phelps MD [address] [place], [place] [phone] documented as of this encounter Visit Diagnoses Diagnosis Mixed hyperlipidemia (CMS/HCC)- Primary Mixed hyperlipidemia documented in this encounter Care Teams Lamp Shade Maker Relationship Specialty Start Date End Date Tish Pearson NP [address] [place] [address] PCP - ACO Reach 03/05/23 12/10/23 Hue Phelps MD [address] [place], [place] [phone] PCP - General Family Medicine 03/19/23 Yelena An NP [address] [place] [address] PCP - ACO Reach 12/11/23 Theodore Augustin LPN [address] [place] [id number] Licensed Practical Nurse Family Medicine 06/06/24 documented as of this encounter
--- OUTSIDE RECORDS SUMMARY | 2025-03-11 11:55 | XMS_ITS | Encounter Summary ---
Author Organization [facility] tem Address [id number] [address] [place] [address] Care Team Providers Care Software Support Engineer Name Role Phone Tish Pearson SYSTEMS ARCHITECTURE ANALYST-IT OPERATIONS ANALYST Primary Care Pro vider Encounter Details Date Type Department Care Team (Late st Contact Info) Description 07/18/2022 Telephone [facility] - Radiation Oncology [address] [place] [address] Tish Pearson SYSTEMS ARCHITECTURE ANALYST-IT OPERATIONS ANALYST [address] [place], [place] [phone] Social History Tobacco Use Types Packs/Day Years Used Date Smoking Tobacco: Never Smokeless Tobacco: Never Alcohol Use Standard Drinks/Week Comments No 0 (1 standard drink = 0.6 oz pur e alcohol) Childcare Answer Date Recorded Childcare Unknown 03/23/2019 Employment Answer Date Recorded Employment Unknown 03/23/2019 Purpose - Life Answer Date Recorded Purpose and direction in life Unknown Comments No Sex and Gender Information Value Date Recorded Sex Assigned at Not on file Legal Sex Female 11:27 AM EDT Gender Identity Not on file Sexual Orientation Not on file COVID-19 Exposure Response Date Recorded In the last month, have you been in contact with someone who was confirmed or suspected to have Coronavirus / COVID-19? No / Unsure 06/30/2022 1:16 PM EDT documented as of this encounter Miscellaneous Notes * Telephone Encounter - Angeles Reyes - 07/18/2022 1:28 PM EDT Patient is changing insurance and needs to know the dosage of her Boniva. Please call her at [phone] documented in this encounter Plan of Treatment Not on file documented as of this encounter Visit Diagnoses Not on filedocumented in this encounter Care Teams Software Support Engineer Relationship Specialty Start Date End Date Tish Pearson APRN-IT OPERATIONS ANALYST [address] [place] [address] PCP - General Internal Medicine 08/31/24 documented as of this encounter
--- OUTSIDE RECORDS SUMMARY | 2025-03-11 11:55 | XMS_ITS | Clinical Summary ---
Author Organization [facility] Address [address] [place] [address] Care Team Providers Care Regulatory Internship Name Role Phone Hue Phelps MD Primary Care Provider [phone] Yelena An FAMILY SERVICE AIDE Unavailable [phone] Theodore Augustin LPN Unavailable [phone] Allergies No known active allergies Medications Calcium Citrate-Vitamin D (CALCIUM + D PO) Take 1 tablet by mouth once per day Active B Complex Vitamins (VITAMIN-B COMPLEX PO) 1 (one) time each day at the same time. Active zinc gluconate 50 MG tablet Take 50 mg by mouth in the morning. Active ibandronate (Boniva) 3 MG/3ML solutionIndication s:Age-related osteoporosis without current pathological fracture (CMS/HCC) Infuse 3 mL (3 mg) into a venous catheter every 3 (three) months 3 mL 1 01/11/20 24 Active Additional Information Patient not taking.Reason: pt stated dr phelps stopped for a year, Reported on 02/21/2025 Lancets miscIndications:Pr ediabetes 1 Lancet Daily 100 each 1 08/24/20 24 Active biotin 1000 MCG tablet Take 1,000 mcg by mouth Daily Active Turmeric (QC Tumeric Complex) 500 MG capsule Take 1 capsule by mouth once per day Active glucosamine-chondr oitin 500-400 MG tablet Take 1 tablet by mouth in the morning and 1 tablet in the evening and 1 tablet before bedtime. Active losartan (Cozaar) 25 MG tabletIndications: Primary hypertension (CMS/HCC) Take 1 tablet (25 mg) by mouth in the morning. 90 tablet 1 10/21/19 25 Active glucose blood ([employer] Glucose Test) test stripIndications:T ype 2 diabetes mellitus without complication, without long-term current use of insulin 1 each by Other route 2 (two) times a week Use as instructed 100 strip 10/27/19 25 Active atorvastatin (Lipitor) 20 MG tabletIndications: Mixed hyperlipidemia (CMS/HCC) Take 1 tablet (20 mg) by mouth in the morning. 90 tablet 1 11/28/19 25 Active fluticasone (Flonase) 50 MCG/ACT nasal sprayIndications:S inus pressure SHAKE GENTLY AND SPRAY 1 SPRAY IN EACH NOSTRIL ONCE DAILY *BEFORE FIRST USE, PRIME PUMP. AFTER USE, CLEAN TIP AND REPLACE CAP* 16 mL 1 12/27/19 25 Active oxyCODONE-acetamin ophen (Percocet) 5-325 MG tablet 02/16/20 25 Active Active Problems Problem Noted Date Diagnosed Date Type 2 diabetes mellitus without complication Mixed hyperlipidemia 02/10/2023 Assessment & Plan (02/21/2025 10:30 PM EDT): Controlled on lipitor. Hypertension 02/10/2023 Assessment & Plan (02/21/2025 10:30 PM EDT): Controlled on losartan. Chronic pain 04/18/2019 Chronic maxillary sinusitis 08/24/2017 Age related osteoporosis 06/17/2017 Seasonal allergies 07/17/2016 Urinary frequency 09/25/2015 Resolved Problems Problem Noted Date Diagnosed Date Resolved Date Osteopenia 05/18/2023 09/15/2023 Osteoporosis 05/18/2023 09/15/2023 Osteoporosis without current pathological fracture 02/10/2023 09/15/2023 Chronic sinusitis of both maxillary sinuses 02/10/2023 09/15/2023 Allergic rhinitis 02/10/2023 09/15/2023 Insomnia 09/02/2019 09/15/2023 Abdominal swelling 09/25/2015 3 Hematuria 09/25/2015 09/15/2023 Encounters Date Type Department Care Team Description 02/24/2025 Patient Outreach [facility] [address] [place] [address] Demetria TheodoreJENNIFER 02/23/2025 Telephone [facility] [address] [place] [address] Hue Phelps MD 02/21/2025 11:00 AM EDT Office Visit [facility] [address] [place] [address] Hue Phelps MD Preoperative clearance (Primary Dx); Primary hypertension (CMS/HCC); Mixed hyperlipidemia (CMS/HCC); Age-related osteoporosis without current pathological fracture (CMS/HCC) 02/21/2025 Bamboo flowsheet [facility] [address] [place] [address] Hue Phelps MD 02/21/2025 Travel 02/20/2025 Orders Only [facility] [address] [place] [address] Hue Phelps MD 02/20/2025 Telephone [facility] [address] [place] [address] Hawa Swartz NP 01/26/2025 Results Follow-Up [facility] [address] [place] [address] Yelena An NP 01/25/2025 2:00 PM EDT Office Visit [facility] [address] [place] [address] Tish Pearson NP Acute cystitis with hematuria (Primary Dx); Acute pain of right shoulder 01/25/2025 12:00 PM EDT Ancillary Procedure [facility] [address] [place] [address] Acute pain of right shoulder 01/25/2025 Bamboo flowsheet [facility] [address] [place] [address] Tish Pearson NP 01/25/2025 Travel 12/26/2024 Refill [facility] [address] [facility] [place] [phone] Yelena An NP Sinus pressure 12/22/2024 Telephone [facility] [address] [facility] [address] Hue Phelps MD from Last 3 Months Immunizations Immunization Administration Dates Next Due Influenza, High Dose Seasona l, Preservative Free 08/17/2024,07/15/2016 Influenza, High-dose Seasona l, Quadrivalent, Preservative Free 06/22/2023,06/25/2022,06/24/2021,05/28,06/24/2019,06/07/2018,06/10/2017 Influenza, seasonal, injecta ble, preservative free 07/15/2016,08/22/2015,07/06/2013,07/13 Pneumococcal Conjugate PCV 13 06/03/2016 Pneumococcal Conjugate PCV 20 09/16/2024 Pneumococcal Polysaccharide PPSV23 07/06/2017 Zoster, Recombinant 02/24/2023,12/11/2022 Family History Medical History Relation Name Comments Arthritis Father Diabetes Father Heart failure Father Alzheimer's disease Mother Glaucoma Sister Relation Name Status Comments Brother 2 brothers Father Mother Sister 1 sister Social History Tobacco Use Types Packs/Day Years Used Date Smoking Tobacco: Never Smokeless Tobacco: Never Tobacco Cessation:Counseling Given: Not Answered Alcohol Use Standard Drinks/Week Comments Not Currently 0 (1 standard drink = 0.6 oz pure alcohol) Caffeine intake : 1-2 cups per day PHQ-2 Answer Date Recorded Patient Health Questionnaire-2 Score 0 02/21/2025 Comments Unknown Sex and Gender Information Value Date Recorded Sex Assigned at Not on file Legal Sex Female 7:26 PM EDT Gender Identity Not on file Sexual Orientation Not on file Last Filed Vital Signs Vital Sign Reading Time Taken Comments Blood Pressure 132/74 02/21/2025 10:45 AM EDT Pulse 81 02/21/2025 10:45 AM EDT Temperature 36.3 C (97.3 F) 01/25/2025 2:05 PM EDT Respiratory Rate - - Oxygen Saturation 98% 02/21/2025 10: 45 AM EDT Inhaled Oxygen Concentration - - Weight 55.2 kg (121 lb 12.8 oz) 025 10:45 AM EDT Height 156.8 cm (5' 1.75 ) 02/21/2025 1 0:45 AM EDT Body Mass Index 22.46 02/21/2025 10:45 AM EDT Plan of Treatment Upcoming Encounters Date Type Department Care Team (Late st Contact Info) Description 09/21/2025 2:00 PM EST Office Visit [facility] [address] [place] [address] Hue Phelps MD [address] [place], [place] [id number] Health Maintenance Due Date Last Done Comments Diabetes: Hemoglobin A1C 03/17/2025 024, 09/15/2023, 03/19/2023, Additional history exists Diabetes: Retinopathy Screening 07/06/2025 Medicare Annual Wellness (AWV) 09/16/2025 1 11/17/2023, 09/15/2023, 09/15/2023, Additional history exists Diabetes: Urine Protein Screening 11/04/2025 11/04/2024, 09/15/2023, 03/12/2022 Influenza Vaccine Completed 08/17/2024, , 06/25/2022, Additional history exists Pneumococcal Vaccine: 65+ Years Completed 09/16/2024, 07/06/2017, 06/03/2016 Procedures Procedure Name Priority Date/Time Associated Diagnosis Comments ECG 12-LEAD Routine 02/17/2025 6:33 PM EDT XR SHOULDER 2+ VIEWS RIGHT Routine 01/25/2025 2:50 PM EDT Acute pain of right shoulder URINALYSIS, COMPLETE Routine 01/25/2025 2:44 PM EDT CULTURE, URINE, ROUTINE Routine 01/25/2025 2:44 PM EDT Acute pain of right shoulder Acute cystitis with hematuria POCT URINALYSIS DIPSTICK Routine 01/25/2025 2:32 PM EDT Acute pain of right shoulder Acute cystitis with hematuria MICROALBUMIN / CREATININE URINE RATIO Routine 11/04/2024 3:57 PM EST Type 2 diabetes mellitus without complication, without long-term current use of insulin ([facility]) HEMOGLOBIN A1C Routine 09/16/2024 3:42 PM EST Type 2 diabetes mellitus without complication, without long-term current use of insulin ([facility]) DIABETIC RETINOPATHY SCREENING - OU - BOTH EYES Routine 07/06/2023 9:30 AM EDT from Last 3 Months or Most Recently Relevant to Health Maintenance Results * ECG 12 lead (02/17/2025 6:33 PM EDT) us Hue Phelps MD ECG ORDERABLES Final Result * XR shoulder 2+ views right (01/25/2025 2:50 PM EDT) Anatomical Region Laterality Modality Upper Extremities, Shoulder Right Radi ographic Imaging 01/25/2025 8:09 PM EDT Narrative 01/25/2025 8:09 PM EDT XR SHOULDER 2+ VIEWS RIGHT Reason for exam: Right shoulder pain, no injury Views: 4 Findings: There is demineralization of the regional skeleton. The alignment is normal. No fracture, dislocation or other acute pathology is demonstrated. No soft tissue abnormalities are seen. Impression: Negative exam. Dictated on: 01/25/2025 6:07 PM This report has been electronically signed and approved by the interpreting Radiologist. Procedure Note Vipin Downs MD - 01/25/2025 XR SHOULDER 2+ VIEWS RIGHT Reason for exam: Right shoulder pain, no injury Views: 4 Findings: There is demineralization of the regional skeleton. Thealignment is normal. No fracture, dislocation or other acute pathology isdemonstrated. No soft tissue abnormalities are seen. Impression: Negative exam. Dictated on: 01/25/2025 6:07 PM This report has been electronically signed and approved by theinterpreting Radiologist. us Tish Pearson FAMILY SERVICE AIDE IMG XR PROCEDURES Final Result * Urinalysis with microscopic (01/25/2025 2:44 PM EDT) COLOR DARK YELLOW YELLOW [facility] APPEARANCE CLEAR CLEAR [facility] SPECIFIC GRAVITY 1.010 1.001 - 1.035 [facility] PH 7.0 5.0 - 8.0 [facility] GLUCOSE NEGATIVE NEGATIVE [facility] BILIRUBIN NEGATIVE NEGATIVE [facility] KETONES NEGATIVE NEGATIVE [facility] OCCULT BLOOD NEGATIVE NEGATIVE [facility] PROTEIN NEGATIVE NEGATIVE [facility] NITRITE NEGATIVE NEGATIVE [facility] LEUKOCYTE ESTERASE NEGATIVE NEGATIVE [facility] WBC NONE SEEN < OR = 5 /HPF [facility] RBC 0-2 < OR = 2 /HPF [facility] SQUAMOUS EPITHELIAL CELLS NONE SEEN < OR = 5 /HPF [facility] BACTERIA NONE SEEN NONE SEEN /HPF [facility] HYALINE CAST NONE SEEN NONE SEEN /LPF [facility] NOTE [facility] Comment: This urine was analyzed for the presence of WBC, RBC, bacteria, casts, and other formed elements. Only those elements seen were reported. 01/25/2025 2:44 PM EDT 01/25/2025 2:45 PM EDT Narrative Resulting Agency Comment Performing Organization Information Site ID: QPT Name: [facility] Address: [address] [place] [address], [address] [place] [phone] Director: Geraldo Everett MD us Tish Pearson FAMILY SERVICE AIDE LAB URINE ORDERABLES Fi nal Result Performing Organization Address [facility] de Phone Number [facility] * Urine culture (01/25/2025 2:44 PM EDT) MICRO NUMBER [id number] [facility] SPECIMEN QUALITY Adequate [facility] SOURCE: ([facility]) URINE [facility] STATUS FINAL [facility] RESULT SEE NOTE [facility] Comment: No Growth Urine Urine specimen obtained by clean catch procedure / Unknown 01/25/2025 2:44 PM EDT 01/25/2025 2:45 PM EDT Narrative Resulting Agency Comment Performing Organization Information Site ID: QPT Name: [facility] Address: [address] [place] [address], [address] [place] [phone] Director: Geraldo Everett MD Tish Pearson NP LAB MICROBIOLOGY - GENE RAL ORDERABLES Final Result [facility] * POCT urinalysis dipstick manually resulted (01/25/2025 2:32 PM EDT) Color, UA Yellow Clarity, UA Clear Glucose, UA Negative Negative - 2000(110) ++++ mg/dL Bilirubin, UA Negative Negative - 4(70) +++ mg/dL Ketones, UA Negative Negative - 160(16) ++++ mg/dL Spec Grav, UA 1.005 1 - 1.03 Blood, UA Positive Negative - 50 Navin/mcL pH, UA 6.5 5 - 9 Protein, UA Positive Negative - 2000(20) ++++ mg/dL Urobilinogen, UA 1.0 0.2 - 12 mg/dL Leukocytes, UA Positive Negative - 500+++ Balbir/mcL Nitrite, UA Negative Negative - Positive Urine 01/25/2025 2:32 PM EDT Tish Pearson NP POINT OF CARE TEST ENTE R/EDIT ORDERABLES Final Result * Microalbumin / creatinine urine ratio (11/04/2024 3:57 PM EST) CREATININE, RANDOM URINE 58 20 - 275 mg/dL [facility] ALBUMIN, URINE 0.4 See Note: mg/dL [facility] Comment: Reference Range: Reference Range Not established ALBUMIN/CREATININE RATIO, RANDOM URINE 7 <30 mg/g creat [facility] Comment: The ADA defines abnormalities in albumin excretion as follows: Albuminuria Category Result (mg/g creatinine) Normal to Mildly increased <30 Moderately increased 30-299 Severely increased > OR = 300 The ADA recommends that at least two of three specimens collected within a 3-6 month period be abnormal before considering a patient to be within a diagnostic category. Urine Urine specimen obtained by clean catch procedure / Unknown 11/04/2024 3:57 PM EST 11/04/2024 3:57 PM EST Narrative Resulting Agency Comment Performing Organization Information Site ID: QPT Name: [facility] Address: [address] [place] [address], [address] [place] [phone] Director: Geraldo Everett MD us Hue Phelps MD LAB URINE ORDERABLES Final Re sult [facility] * (ABNORMAL) Hemoglobin A1c (09/16/2024 3:42 PM EST) Hemoglobin A1C 6.0(H) <5.7 % of total Hgb [facility] Comment: For someone without known diabetes, a hemoglobin A1c value between 5.7% and 6.4% is consistent with prediabetes and should be confirmed with a follow-up test. For someone with known diabetes, a value <7% indicates that their diabetes is well controlled. A1c targets should be individualized based on duration of diabetes, age, comorbid conditions, and other considerations. This assay result is consistent with an increased risk of diabetes. Currently, no consensus exists regarding use of hemoglobin A1c for diagnosis of diabetes for children. Blood Venous blood specimen / Unknown 09/16/2024 3:42 PM EST 09/16/2024 3:43 PM EST Narrative [facility] - 09/17/2024 2:49 AM EST PATIENT UNABLE TO VOID; ADVISED TO RETURN FOR COLLECTION. Resulting Agency Comment Performing Organization Information Site ID: QPT Name: [facility] Address: [address] [place] [address], [address] [place] [phone] Director: Geraldo Everett MD us Hue Phelps MD LAB BLOOD ORDERABLES Final Re sult Performing Organization Address [facility]/ZIP Co de Phone Number [facility] * Diabetic Retinopathy Screening - OU - Both Eyes (07/06/2023 9:30 AM EDT) Anatomical Region Laterality Modality Head Other us Hue Phelps MD OPHTH PHOTOGRAPHY Final Resul t from Last 3 Months or Most Recently Relevant to Health Maintenance Insurance MEDICARE AARP Care Teams Regulatory Internship Relationship Specialty Start Date End Date Hue Phelps MD [address] [place], [place] [id number] PCP - General Family Medicine 03/19/23 Yelena An NP [address] [place] [address] PCP - ACO Reach 12/11/23 Theodore Augustin LPN [address] [facility] [address] [place] [id number] Licensed Practical Nurse Family Medicine 06/06/24
--- OUTSIDE RECORDS SUMMARY | 2025-03-11 11:55 | XMS_ITS | Encounter Summary ---
Author Organization [facility] Address [address] [place] [address] Care Team Providers Care Process Technician Name Role Phone Pearson Tish Lucy LAYAWAY CLERK Unavailable [phone] Hue Phelps MD Primary Care Provider Yelena An LAYAWAY CLERK Unavailable [phone] Theodore Augustin ACCOUNT EXECUTIVE AGRIBUSINESS Unavailable [phone] Reason for Visit * Reason Comments Med Refill Encounter Details Date Type Department Care Team (Late st Contact Info) Description 07/05/2023 Refill [facility] [address] [place] [address] Hue Phelps MD [address] [place] [address] Mixed hyperlipidemia (CMS/HCC) Social History Tobacco Use Types Packs/Day Years Used Date Smoking Tobacco: Never Smokeless Tobacco: Never Alcohol Use Standard Drinks/Week Comments Not Currently 0 (1 standard drink = 0.6 oz pure alcohol) Caffeine intake : 1-2 cups per day PHQ-2 Answer Date Recorded Patient Health Questionnaire-2 Score 0 05/18/2023 Comments Unknown Sex and Gender Information Value Date Recorded Sex Assigned at Not on file Legal Sex Female 7:26 PM EDT Gender Identity Not on file Sexual Orientation Not on file documented as of this encounter Miscellaneous Notes * Telephone Encounter - Hue Phelps MD - 07/06/2023 8:09 AM EDT Approving, but needs appt for additional refills. documented in this encounter Plan of Treatment Upcoming Encounters Date Type Department Care Team (Late st Contact Info) Description 09/21/2025 2:00 PM EST Office Visit [facility] [address] [place] [address] Hue Phelps MD [address] [place] [address] documented as of this encounter Visit Diagnoses Diagnosis Mixed hyperlipidemia (CMS/HCC) Mixed hyperlipidemia documented in this encounter Care Teams Process Technician Relationship Specialty Start Date End Date Tish Pearson NP [address] [place] [address] PCP - ACO Reach 03/05/23 12/10/23 Hue Phelps MD [facility] [place] [address] PCP - General Family Medicine 03/19/23 Yelena An NP [facility] [place] [address] PCP - ACO Reach 12/11/23 Theodore Augustin LPN [address] [facility] [address] [place] [id number] Licensed Practical Nurse Family Medicine 06/06/24 documented as of this encounter
--- OUTSIDE RECORDS SUMMARY | 2025-03-11 11:55 | XMS_ITS | Encounter Summary ---
Author Organization [employer] tem Address [id number] [address] [place] [address] Care Team Providers Care Intellectual Property Lawyer Name Role Phone Tish Pearson Primary Care Pro vider Encounter Details Date Type Department Care Team (Latest Contact Info) Description 02/27/2025 Travel Social History Tobacco Use Types Packs/Day Years [...] on file documented as of this encounter Plan of Treatment Not on file documented as of this encounter Visit Diagnoses Not on filedocumented in this encounter Care Teams Intellectual Property Lawyer Relationship Specialty Start Date End Date Tish Pearson APRN-CNP [address] [place] [address] PCP - General Internal Medicine 08/31/24 documented as of this encounter
--- OUTSIDE RECORDS SUMMARY | 2025-03-11 11:55 | XMS_ITS | Clinical Summary ---
Author Organization [employer] tem Address [id number] [address] [place] [address] Care Team Providers Care Ladle Operator Name Role Phone Tish Pearson APRN-COFFIN MAKER Primary Care Pro vider Allergies Active Allergy Reactions Criticality Noted Date Comments No Known Drug Allergies 09/22/2016 Medications ibandronate (BONIVA) 3 mg/3 mL injectionIndicat ions:postmenopau carlos osteoporosis Infuse 3 mL (3 mg total) into a venous catheter every 3 (three) months Indications: decreased bone mass following menopause. Active b complex vitamins capsule Take 1 capsule by mouth in the morning. Active calcium carbonate-vitami n D3 500 mg-10 mcg (400 unit) tablet Take 1,200 mg by mouth daily. Active TURMERIC ROOT EXTRACT ORAL Take 1 capsule by mouth daily. Active atorvastatin (LIPITOR) 20 mg tablet Take 1 tablet (20 mg total) by mouth in the morning. Active ZINC ORAL Take by mouth. Activ e losartan (COZAAR) 25 mg tablet Take 1 tablet (25 mg total) by mouth in the morning. Active fluticasone (FLONASE) 50 mcg/actuation nasal spray Administer 2 sprays into each nostril once daily. 6 09/01/20 16 025 Discontinu ed(Therapy completed) lisinopril (PRINIVIL,ZESTRI L) 10 mg tablet Take 10 mg by mouth daily. 09/01/20 16 025 Discontinu ed(Therapy completed) aspirin 81 mg Take 81 mg by mouth every other day. 025 Discontinu ed(Therapy completed) cholecalciferol, vitamin D3, (VITAMIN D3 ORAL) Take 2 capsules by mouth daily. 025 Discontinu ed(Therapy completed) ascorbic acid (VITAMIN C ORAL) Take by mouth. 02/09 11/13 025 Discontinu ed(Therapy completed) oxyCODONE-acetam inophen (PERCOCET) 5-325 mg per tabletIndication s:Other closed nondisplaced fracture of proximal end of right humerus, initial encounter Take 1 tablet by mouth every 6 (six) hours as needed for pain for up to 3 days. 3 Day Supply Max Daily Amount: 4 tablets 12 tablet 02/11/20 25 025 Active Problems Problem Noted Date Diagnosed Date Osteopenia Osteoporosis Encounters Date Type Department Care Team Description 02/27/2025 10:34 AM EDT Anesthesia Event [address] [address] Perez Phipps MD 02/27/2025 10:30 AM EDT - 02/27/2025 12:00 PM EDT Surgery [address] [address] Amari Lozoya MD OPEN REDUCTION INTERNAL FIXATION SHOULDER [42895 (CPT )] 02/27/2025 8:45 AM EDT - 02/27/2025 3:19 PM EDT Hospital Encounter [address] [address] Amari Lozoya MD Closed displaced fracture of glenoid cavity of right scapula, initial encounter (Primary Dx); Closed displaced fracture of greater tuberosity of right humerus, initial encounter Discharge Disposition: Home 02/27/2025 Travel 02/21/2025 Travel 02/17/2025 9:12 AM EDT - 02/17/2025 11:59 PM EDT Hospital Encounter [facility] - CT Imaging [address] [place] [address] Hilary, Frank Garcia, PAKaseyC Closed displaced fracture of glenoid cavity of right scapula, initial encounter; Closed displaced fracture of greater tuberosity of right humerus, initial encounter Discharge Disposition: Home 02/17/2025 9:04 AM EDT - 02/17/2025 9:11 AM EDT Hospital Encounter [facility] - Cardiovascular [address] [place] [address] Frank Richard PA-C Closed displaced fracture of glenoid cavity of right scapula, initial encounter; Closed displaced fracture of greater tuberosity of right humerus, initial encounter Discharge Disposition: Home 02/17/2025 Travel 02/10/2025 11:23 AM EDT - 02/10/2025 2:05 PM EDT Emergency [facility] - Emergency [address] [facility] [address] Luisa Lewis MD Other closed nondisplaced fracture of proximal end of right humerus, initial encounter (Primary Dx) Discharge Disposition: Home 02/10/2025 Travel from Last 3 Months Family History Medical History Relation Name Comments Coronary artery disease Brother Diabetes Brother Hypertension Brother Hypertension Sister Anesthesia problems Neg Hx Breast cancer Neg Hx Relation Name Status Comments Brother Father Mother Sister Social History Tobacco Use Types Packs/Day Years [...] Mass Index 22.14 02/20/2025 1:00 PM EDT Plan of Treatment Health Maintenance Due Date Last Done Comments Depression Screening 1957 DTaP,Tdap and Td Vaccines (1 - Tdap) 1964 Fall Risk Screening 2010 COVID-19 Vaccine (2023-2 5 season) 2025 08/17/2024, 08/04/2023, 07/03/2022, Additional history exists Influenza Vaccine 06/12/2025 08/17/2024, , 06/25/2022, Additional history exists Tobacco Screening 02/27/2026 02/27/2025 Zoster (Shingles) Vaccine Completed 02/24/2023, 11/2022 Medical Devices Implanted Type Area Interventional Radiology Rn Device Identifier Shelf Expiration Date Model / Serial / Lot Olla Sut 5.5mm Swivelock C Cls Eylt Vnt Bcmps Pk 19.1mm Ea=Bill-Only - [id number] Implanted:Qty: 1 on 02/27/2025 by Amari Lozoya MD at [facility] Olla Right: Shoulder Arthrex 07/11/2028 [id number] / / [id number] David Pin, 0.062 Implanted:Qty: 5 on 02/27/2025 by Amari Lozoya MD at [facility] Pin Right: Shoulder Shy Biomet 0.062 / / David Pin, Implanted:Qty: 1 on 02/27/2025 by Amari Lozoya MD at [facility] Pin Right: Shoulder Shy Biomet / / Explanted Type Area Interventional Radiology Rn Device Identifier Shelf Expiration Date Model / Serial / Lot Threaded David Pin, Explanted:02/09 by Amari Lozoya MD at [facility] (Quantity not on file) Pin Right: Shoulder Shy Biomet / / Procedures Procedure Name Priority Date/Time Associated Diagnosis Comments XR SHOULDER RT MIN 2 VWS Routine 02/27/2025 1:12 PM EDT SD AN ELECTIVE ENDOTRACHEAL AIRWAY Routine 02/27/2025 10:38 AM EDT REPAIR ROTATOR CUFF SHOULDER 02/27/2025 10:33 AM EDT Displaced fracture of glenoid cavity of scapula right shoulder initial encounter for closed fracture, Displaced fracture of greater tuberosity of right humerus initial encounter for closed fracture Case Notes 9:00 Special Needs [id number], beach chair and have available 4.0 screws and sutures SD OPEN RX GR TUBEROSITY FX 02/27/2025 10:33 AM EDT Displaced fracture of glenoid cavity of scapula right shoulder initial encounter for closed fracture, Displaced fracture of greater tuberosity of right humerus initial encounter for closed fracture Case Notes 9:00 Special Needs [id number], beach chair and have available 4.0 screws and sutures CHG SONO GUIDE NEEDLE BIOPSY Routine 02/27/2025 9:54 AM EDT SD INJECTION AA&/STRD BRACHIAL PLEXUS W/IMG GDN Routine 02/27/2025 9:54 AM EDT PM PERIPHERAL BLOCK Routine 02/27/2025 9 :54 AM EDT BASIC METABOLIC PANEL Routine 02/21/2025 11:53 AM EDT Displaced fracture of glenoid cavity of scapula, right shoulder, initial encounter for closed fracture Displaced fracture of greater tuberosity of right humerus, initial encounter for closed fracture CBC WITH AUTO DIFFERENTIAL Routine 02/21/2025 11:53 AM EDT Displaced fracture of glenoid cavity of scapula, right shoulder, initial encounter for closed fracture Displaced fracture of greater tuberosity of right humerus, initial encounter for closed fracture CT SHOULDER RT WO CONT STAT 02/17/2025 9:29 AM EDT Closed displaced fracture of glenoid cavity of right scapula, initial encounter Closed displaced fracture of greater tuberosity of right humerus, initial encounter ECG 12-LEAD Routine 02/17/2025 9:07 AM EDT Closed displaced fracture of glenoid cavity of right scapula, initial encounter Closed displaced fracture of greater tuberosity of right humerus, initial encounter CT CERVICAL SPINE WO CONT STAT 02/10/2025 12:[address] BRAIN WO CONT STAT 02/10/2025 12:3 2 PM EDT XR KNEE RT 3 VWS STAT 02/10/2025 12:1 9 PM EDT XR HIP RT 2-3 VIEWS W OR WO PELVIS STAT 02/10/2025 12:19 PM EDT XR SHOULDER RT MIN 2 VWS STAT 02/10/2025 12:19 PM EDT from Last 3 Months Results * X-ray shoulder right minimum 2 views (02/27/2025 1:12 PM EDT) Only the most recent of2 resultswithin the time period is included. Anatomical Region Laterality Modality MSK, Upper Extremities, [...] Nava MD on 02/27/2025 2:22 PM Amari FONTENOTG DIAGNOSTIC IMAGING ORDERABL ES Final Result * SD AN ELECTIVE ENDOTRACHEAL AIRWAY (02/27/2025 10:38 AM EDT) Narrative Kristine Hook APRN-CRNA - 02/27/2025 10:38 AM EDT RUBY [...] 0 Number of attempts at approach: 1 Perez Phipps MD ANESTHESIA ORDERABLES Final R esult * PM PERIPHERAL BLOCK, SD INJECTION AA&/STRD BRACHIAL PLEXUS W/IMG GDN, CHG [...] Chlorhexidine and Isopropyl Alcohol Monitoring: Heart Rate, Grocery Store Associate, Continuous Pulse Ox and Blood Pressure Oxygen [...] MD ANESTHESIA ORDERABLES Final R esult * CBC auto differential (02/21/2025 11:53 AM EDT) WBC 5.7 4 - 11 x10E9/L 02/21/2025 6:55 PM EDT [facility] RBC Count 3.94 3.8 - 5.2 X10E12/L 02/21/2025 6:55 PM EDT [facility] Hemoglobin 12.2 11.7 - 15.5 g/dL 02/21/2025 6:55 PM EDT [facility] Hematocrit 36.8 35 - 47 % 02/21/2025 6:55 PM EDT [facility] MCV 93 80 - 100 fL 02/21/2025 6:55 PM EDT [facility] MCH 30.8 27 - 34 pg 02/21/2025 6:55 PM EDT [facility] MCHC 33.0 32 - 36 g/dL 02/21/2025 6:55 PM EDT [facility] RDW 14.2 11.5 - 15 % 02/21/2025 6:55 PM EDT [facility] Platelet Count 251 150 - 450 X10E9/L 02/21/2025 6:55 PM EDT [facility] MPV 8.9 7 - 12 fL 02/21/2025 6:55 PM EDT [facility] Neutrophils Relative 67.5 % 02/21/2025 6:55 PM EDT [facility] Lymphocytes Relative 22.3 % 02/21/2025 6:55 PM EDT [facility] Monocytes Relative 7.8 % 02/21/2025 6:55 PM EDT [facility] Eosinophils Relative 1.1 % 02/21/2025 6:55 PM EDT [facility] Basophils Relative 1.3 % 02/21/2025 6:55 PM EDT [facility] Neutrophils Absolute (A) 3.8 1.5 - 6.6 10*3/uL 02/21/2025 6:55 PM EDT [facility] Lymphocytes Absolute 1.3 1.0 - 3.5 10*3/uL 02/21/2025 6:55 PM EDT [facility] Monocytes Absolute 0.4 0.0 - 0.9 10*3/uL 02/21/2025 6:55 PM EDT [facility] Eosinophils Absolute 0.1 0.0 - 0.4 10*3/uL 02/21/2025 6:55 PM EDT [facility] Basophils Absolute 0.1 0.0 - 0.2 10*3/uL 02/21/2025 6:55 PM EDT [facility] Differential Type AUTOMATED DIFFERENTIAL 02/21/2025 6:55 PM EDT [facility] Blood Venous blood / Unknown Venipuncture / Unknown 02/21/2025 11:53 AM EDT 02/21/2025 11:53 AM EDT us Frank Richard PA-C LAB BLOOD ORDERABLES Final Res ult [facility] [address] [place] [address], * Basic Metabolic Panel (02/21/2025 11:53 AM EDT) SODIUM 144 134 - 146 mmol/L 02/21/2025 7:07 PM EDT [facility] POTASSIUM 4.0 3.5 - 5.0 mmol/L 02/21/2025 7:07 PM EDT [facility] CHLORIDE 108 98 - 109 mmol/L 02/21/2025 7:07 PM T [facility] CARBON DIOXIDE 28 22 - 32 mmol/L 02/21/2025 7:07 PM T [facility] ANION GAP 8 5 - 15 mmol/L 02/21/2025 7:07 PM EDT [facility] BLOOD UREA NITROGEN 19 5 - 27 mg/dL 02/21/2025 7:07 PM EDT [facility] CREATININE 0.63 0.40 - 1.00 mg/dL 02/21/2025 7:07 PM T [facility] Comment:METHOD TRACEABLE TO IDMS STANDARD GLUCOSE 98 65 - 99 mg/dL 02/21/2025 7:07 PM T [facility] CALCIUM 8.8 8.5 - 10.5 mg/dL 02/21/2025 7:07 PM EDT [facility] EGFR Non-Race Dependent 90 >=60 ml/min/1.7 3sq.m 02/21/2025 7:07 PM EDT [facility] Comment: Reported eGFR is based on the CKD-EPI 2020 equation that does not use a race coefficient. Blood Venous blood / Unknown Venipuncture / Unknown 02/21/2025 11:53 AM EDT 02/21/2025 11:53 AM EDT us Frank Richard PA-C LAB BLOOD ORDERABLES Final Res ult [facility] [address] [place] [address], [place] [phone] * CT shoulder right without contrast (02/17/2025 9:29 AM EDT) Anatomical Region Laterality Modality MSK, Upper Extremities, Shoulder, MSK Covera Rig ht Computed Tomography 02/17/2025 9:43 AM EDT Narrative 02/17/2025 9:54 AM EDT History: Closed displaced fracture of glenoid cavity of right scapula, initial encounter; Closed displaced fracture of greater tuberosity of right humerus, initial encounter PROCEDURE: Automated exposure control was utilized. CT performed through the right shoulder and compared with x-ray from February 10 Findings: Severely comminuted proximal humeral fracture with multiple loose fragments with the largest fragment measuring approximately 35 mm x 11 mm x 27 mm. One of the fragments is positioned anterior to the glenoid and simulates glenoid injury but there is no bony glenoid fracture identified Remainder the scapula is appropriate as well. AC joint appropriate Consider 3-D CT for operative planning if indicated clinically IMPRESSION: Severely comminuted proximal humeral fracture. Consider 3-D CT for operative planning if indicated clinically. No convincing bony glenoid fracture Finalized by Catalino Maguire MD on 02/17/2025 9:54 AM Procedure Note Catalino Maguire MD - 02/17/2025 History: Closed displaced fracture of glenoid cavity of right scapula, initialencounter; Closed displaced fracture of greater tuberosity of righthumerus, initial encounter PROCEDURE: Automated exposure control was utilized. CT performed through the right shoulder and compared with x-ray from Findings: Severely comminuted proximal humeral fracture with multiple loosefragments with the largest fragment measuring approximately 35 mm x 11 mmx 27 mm. One of the fragments is positioned anterior to the glenoid andsimulates glenoid injury but there is no bony glenoid fractureidentified Remainder the scapula is appropriate as well. AC joint appropriate Consider 3-D CT for operative planning if indicated clinically IMPRESSION: Severely comminuted proximal humeral fracture. Consider 3-D CT foroperative planning if indicated clinically. No convincing bony glenoid fracture Finalized by Catalino Maguire MD on 02/17/2025 9:54 AM Frank Richard PA-C IMG CT ORDERABLES Final Result * ECG 12 lead (02/17/2025 9:07 AM EDT) 02/17/2025 9:07 AM EDT Narrative [facility] - 02/17/2025 12:25 PM EDT Frank Richard PA-C ECG ORDERABLES Final Result [facility] * CT cervical spine without contrast (02/10/2025 12:32 PM EDT) Anatomical Region Laterality Modality MSK, Neuro, Spine, C-spine, Spine Covera N/A Computed Tomography 02/10/2025 12:4 0 PM EDT Narrative 02/10/2025 12:42 PM EDT History: Fall, neck pain Technique: Multidetector spiral CT scan of cervical spine is performed. Multiplanar reconstruction images are obtained. All CT scans at this facility use dose modulation, iterative reconstruction, and/or weight based dosing when appropriate to reduce radiation dose to as low as reasonably achievable. Comparison: 08/31/2024 Findings: There is no evidence of fracture through the cervical vertebrae. The posterior elements are intact. No bony fragments are seen in the spinal canal. Sagittal and axial images demonstrate normal vertebral heights. There is no evidence of compression fractures or malalignment. The odontoid process is intact. No significant prevertebral soft tissue abnormality is identified. Mild degenerative changes. IMPRESSION: No evidence of fractures, malalignment or acute bony pathology. Finalized by Shin Kim MD on 02/10/2025 12:42 PM Procedure Note Shin Kim MD - 02/10/2025 History: Fall, neck pain Technique: Multidetector spiral CT scan of cervical spine is performed.Multiplanar reconstruction images are obtained. All CT scans at [facility] use dose modulation, iterative reconstruction, and/or weightbased dosing when appropriate to reduce radiation dose to as low asreasonably achievable. Comparison: 08/31/2024 Findings: There is no evidence of fracture through the cervicalvertebrae. The posterior elements are intact. No bony fragments are seenin the spinal canal. Sagittal and axial images demonstrate normal vertebral heights. There isno evidence of compression fractures or malalignment. The odontoid processis intact. No significant prevertebral soft tissue abnormality is identified. Milddegenerative changes. IMPRESSION: No evidence of fractures, malalignment or acute bonypathology. Finalized by Shin Kim MD on 02/10/2025 12:42 PM Darlene Krasue [facility] ATTENDANT-COFFIN MAKER IMG CT ORDERABLES Demetrice l Result * CT brain without contrast (02/10/2025 12:32 PM EDT) Anatomical Region Laterality Modality Neuro, Head, Head and Neck, Neuro Covera N/A Computed Tomography 02/10/2025 12:3 8 PM EDT Narrative 02/10/2025 12:41 PM EDT Exam: CT brain without contrast. CLINICAL HISTORY: Fall, lightheadedness TECHNIQUE: CT brain without intravenous contrast. COMPARISON: None FINDINGS: There is no evidence of acute intracranial bleeding, mass effect, or CT evidence of acute ischemia/infarct. The midline structures are intact, no midline shift. The ventricles and basal cisterns are within normal limits. The brainstem and cerebellum are unremarkable. The visualized intraorbital contents are unremarkable. The paranasal sinuses and mastoid air cells are well aerated. No acute osseous abnormality in the visualized skull base and calvarium. IMPRESSION: No acute intracranial pathology. All CT scans at this facility use dose modulation, iterative reconstruction, and/or weight based dosing when appropriate to reduce radiation dose to as low as reasonably achievable. Finalized by Chicho Martin on 02/10/2025 12:41 PM Procedure Note Chicho Martin MD - 02/10/2025 Exam: CT brain without contrast. CLINICAL HISTORY: Fall, lightheadedness TECHNIQUE: CT brain without intravenous contrast. COMPARISON: None FINDINGS: There is no evidence of acute intracranial bleeding, mass effect, or CTevidence of acute ischemia/infarct. The midline structures are intact, no midline shift. The ventricles and basal cisterns are within normal limits. The brainstem and cerebellum are unremarkable. The visualized intraorbital contents are unremarkable. The paranasal sinuses and mastoid air cells are well aerated. No acute osseous abnormality in the visualized skull base and calvarium. IMPRESSION: No acute intracranial pathology. All CT scans at this facility use dose modulation, iterativereconstruction, and/or weight based dosing when appropriate to reduceradiation dose to as low as reasonably achievable. Finalized by Chicho Martin on 02/10/2025 12:41 PM Darlene Evgeny Krause [facility] ATTENDANT-COFFIN MAKER IMG CT ORDERABLES Demetrice l Result * X-ray knee right 3 views (02/10/2025 12:19 PM EDT) Anatomical Region Laterality Modality Lower Extremities, MSK, Knee Right Com puted Radiography 02/10/2025 12:2 2 PM EDT Narrative 02/10/2025 12:22 PM EDT History: Fall. Right knee pain Exam/Technique: 3 views of the right knee. Comparison: None available. Findings: There is no evidence of fracture, malalignment or acute bony abnormality. No appreciable joint effusion. IMPRESSION: * No acute process seen. Finalized by Gerardo Noriega DO on 02/10/2025 12:22 PM Procedure Note Gerardo Noriega DO - 02/10/2025 History: Fall. Right knee pain Exam/Technique: 3 views of the right knee. Comparison: None available. Findings: There is no evidence of fracture, malalignment or acute bonyabnormality. No appreciable joint effusion. IMPRESSION: * No acute process seen. Finalized by Gerardo Noriega DO on 02/10/2025 12:22 PM Darlene Krause APRN-COFFIN MAKER [facility] DIAGNOSTIC IMAGING ORDERABLES Final Result * X-ray hip right 2-3 views with or without pelvis (02/10/2025 12:19 PM EDT) Anatomical Region Laterality Modality Lower Extremities, MSK, Hip Right Comp uted Radiography 02/10/2025 12:1 9 PM EDT Narrative 02/10/2025 12:24 PM EDT XR HIP RT 2-3 VIEWS W OR WO PELVIS HISTORY: Acute hip pain COMPARISON: None. FINDINGS: No acute fracture. Pelvic ring intact. Hip joints are intact. Bilateral os acetabuli. Degenerative changes of the lumbosacral spine. IMPRESSION: * No acute osseous abnormality. Approved by Resident Anirudh Martinez DO on 02/10/2025 12:19 PM Brian Ferrara MD have personally reviewed the image(s) and agree with and/or edited the report Finalized by Brian Best MD on 02/10/2025 12:24 PM Procedure Note Brian Best MD - 02/10/2025 XR HIP RT 2-3 VIEWS W OR WO PELVIS HISTORY: Acute hip pain COMPARISON: None. FINDINGS: No acute fracture. Pelvic ring intact. Hip joints are intact. Bilateral osacetabuli. Degenerative changes of the lumbosacral spine. IMPRESSION: * No acute osseous abnormality. Approved by Resident Anirudh Martinez DO on 02/10/2025 12:19 PM Brian Ferrara MD have personally reviewed the image(s) and agree withand/or edited the report Finalized by Brian Best MD on 02/10/2025 12:24 PM Darlene Krause APRN-ALEJANDRA [facility] DIAGNOSTIC IMAGING ORDERABLES Final Result from Last 3 Months Insurance MEDICARE [facility] MEDICARE [facility] AUTO INSURANCE Care Teams Ladle Operator Relationship Specialty Start Date End Date Tish Pearson, [facility] ATTENDANT-COFFIN MAKER [address] [place] [address] PCP - General Internal Medicine 08/31/24
--- OUTSIDE RECORDS SUMMARY | 2025-03-11 11:55 | XMS_ITS | Encounter Summary ---
Author Organization [facility] Address [address] [place] [address] Care Team Providers Care Make Up Operator Name Role Phone Tish Pearson PET HOUSE SITTER Unavailable [phone] Hue Phelps MD Primary Care Provider [phone] Yelena An PET HOUSE SITTER Unavailable [phone] Theodore Augustin LPN Unavailable [phone] Reason for Visit * Reason Comments Med Refill Encounter Details Date Type Department Care Team (Late st Contact Info) Description 08/05/2023 Refill [facility] [address] [place] [id number] Yelena An PET HOUSE SITTER [address] [place], [place] [id number] Left hip pain; Primary hypertension (CMS/HCC) Social History Tobacco Use Types Packs/Day [...] Telephone Encounter - Hue Phelps MD - 08/12/2023 10:06 AM EDT Approving, but needs appt for additional refills. documented in this encounter Plan of Treatment Upcoming Encounters Date Type Department Care Team (Late st Contact Info) Description 09/21/2025 2:00 PM EST Office Visit [facility] [address] [place] [address] Hue Phelps MD [address] [place] [address] documented as of this encounter Visit Diagnoses Diagnosis Left hip pain Pain in joint, pelvic region and thigh Primary hypertension (CMS/HCC) Unspecified essential hypertension documented in this encounter Care Teams Make Up Operator Relationship Specialty Start Date End Date Tish Pearson NP [address] [place] [address] PCP - ACO Reach 03/05/23 12/10/23 Hue Phelps MD [address] [place] [address] PCP - General Family Medicine 03/19/23 Yelena An NP [address] [place] [address] PCP - ACO Reach 12/11/23 Theodore Augustin, JENNIFER [address] [place] [id number] Licensed Practical Nurse Family Medicine 06/06/24 documented as of this encounter
--- OUTSIDE RECORDS SUMMARY | 2025-03-11 11:55 | XMS_ITS ---
Author Organization [facility] Address [address] [place] [address] Care Team Providers Care Needle Valve Operator Name Role Phone Hue Phelps MD Primary Care Provider [phone] Yelena An LAND INSPECTOR Unavailable [phone] Theodore Augustin LPN Unavailable [phone] Chronic Care Management (CCM) Status:Enrolled (Active) Start date:06/06/2024 Enrollment date:06/06/2024 Overview Please assess for Care Management needs. 06/06/24, 2:06 PM - Theodore Augustin LPN- Patient gives verbal consent to be enrolled in CCM Program and understands there could be a bill for this service should insurer change in the future. Case Team Name Relationship Phone Theodore Augustin LPN(Responsible Staff) Licensed Pr actical Nurse [phone] Continued Care and Services Coordination
--- OUTSIDE RECORDS SUMMARY | 2025-03-11 11:55 | XMS_ITS | Encounter Summary ---
Author Organization [facility] Address [address] [place] [address] Care Team Providers Care Pipeline Operator Name Role Phone Pearson Tish Lucy LITHOPRESS OPERATOR Unavailable [phone] Hue Phelps MD Primary Care Provider [phone] Yelena An LITHOPRESS OPERATOR Unavailable [phone] Theodore Augustin ASSISTANT PROFESSOR OF THEATER Unavailable [phone] Encounter Details Date Type Department Care Team (Late Contact Info) Description 09/22/2023 Orders Only [facility] [address] [place] [address] Hue Phelps MD [address] [place] [address] Social History Tobacco Use Types Packs/Day Years Used Date Smoking Tobacco: Never Smokeless Tobacco: Never Alcohol Use Standard Drinks/Week Comments Not Currently 0 (1 standard drink = 0.6 oz pure alcohol) Caffeine intake : 1-2 cups per day PHQ-2 Answer Date Recorded Patient Health Questionnaire-2 Score 0 09/15/2023 Comments Unknown Sex and Gender Information Value Date Recorded Sex Assigned at Not on file Legal Sex Female 7:26 PM EDT Gender Identity Not on file Sexual Orientation Not on file documented as of this encounter Plan of Treatment Upcoming Encounters Date Type Department Care Team ([facility] Contact Info) Description 09/21/2025 2:00 PM EST Office Visit [facility] [address] [place] [address] Hue Phelps MD [address] [place], [place] [id number] documented as of this encounter Procedures Procedure Name Priority Date/Time Associated Diagnosis Comments DIABETIC RETINOPATHY SCREENING - OU - BOTH EYES Routine 07/06/2023 9:30 AM EDT documented in this encounter Results * Diabetic Retinopathy Screening - OU - Both Eyes (07/06/2023 9:30 AM EDT) Anatomical Region Laterality Modality Head Other us Hue Phelps MD OPHTH PHOTOGRAPHY Final Resul t documented in this encounter Visit Diagnoses Not on filedocumented in this encounter Additional Health Concerns Assessment Noted Time PHQ-9 Depression Total Score: 1 09/15/20 23 3:00 PM EST documented as of this encounter Care Teams Pipeline Operator Relationship Specialty Start Date End Date Tish Pearson NP [address] [place], [place] [id number] PCP - ACO Reach 03/05/23 12/10/23 Hue Phelps MD [address] [place], [place] [id number] PCP - General Family Medicine 03/19/23 Yelena An NP [address] [place], [place] [id number] PCP - ACO Reach 12/11/23 Theodore Augustin LPN [address] [place] [id number] Licensed Practical Nurse Family Medicine 06/06/24 documented as of this encounter
--- OUTSIDE RECORDS SUMMARY | 2025-03-11 11:55 | XMS_ITS | Encounter Summary ---
Author Organization [facility] Address [address] [place] [address] Care Team Providers Care Taper Operator Name Role Phone Hue Phelps MD Primary Care Provider [phone] Yelena An WOODWORKING SHOP HAND Unavailable [phone] Theodore Augustin LPN Unavailable [phone] Encounter Details Date Type Department Care Team (Late st Contact Info) Description 02/20/2025 Orders Only [facility] [address] [place] [address] Hue Phelps MD [address] [place] [address] Social History Tobacco Use Types [...] on file documented as of this encounter Functional Status * Over the past 2 weeks, how often have you been bothered by any of the following problems? Question Answer Date of Assessment Author Little interest or pleasure in doing things Not at all 02/21/2025 10:54 AM EDT Tova Drew MA Feeling down, depressed, or hopeless Not at all 02/21/2025 10:54 AM EDT Tova Drew MA Patient Health Questionnaire-2 Score 0 02/21/2025 10:54 AM EDT Ramya Drew MA documented as of this encounter Plan of Treatment Upcoming Encounters Date Type Department Care Team (Late st Contact Info) Description 09/21/2025 2:00 PM EST Office Visit [facility] [address] [place] [address] Hue Phelps MD [address] [place] [address] documented as of this encounter Procedures Procedure Name Priority Date/Time Associated Diagnosis Comments ECG 12-LEAD Routine 02/17/2025 6:33 PM EDT documented in this encounter Results * ECG 12 lead (02/17/2025 6:33 PM EDT) us Hue Phelps MD ECG ORDERABLES Final Result documented in this encounter Visit Diagnoses Not on filedocumented in this encounter Additional Health Concerns Assessment Noted Time PHQ-9 Depression Total Score: 0 09/16/20 2:00 PM EST documented as of this encounter Care Teams Taper Operator Relationship Specialty Start Date End Date Hue Phelps MD [address] [place] [address] PCP - General Family Medicine 03/19/23 Yelena An NP [address] [place] [address] PCP - ACO Reach 12/11/23 Theodore Augustin LPN [address] [place] [id number] Licensed Practical Nurse Family Medicine 06/06/24 documented as of this encounter
== END 2025-03-11 11:53 | disposition home or self-care (01) ==
LOC: RAD 11:52
PROVIDERS: PCP Family Medicine; Visit Provider Specialist/Technologist Athletic Trainer
DX: M79.604 Pain in right leg (principal)
CPT/HCPCS: 73502; 73562